=== PATIENT | male | born 1955 | race Caucasian/White ===

== ENCOUNTER → 2022-10-24 14:12 | Outpatient (BNVA) | payer MEDICARE, SELFPAY | PROVIDERS: Visit Provider Family Medicine | DX: M75.00 Adhesive capsulitis of unspecified shoulder (principal); M19.019 Primary osteoarthritis, unspecified shoulder; M25.522 Pain in left elbow | CPT/HCPCS: 73030; 73070 ==

== ENCOUNTER → 2022-12-21 13:43 | Outpatient (BNVA) | payer MEDICARE, SELFPAY | PROVIDERS: PCP Family Medicine; Visit Provider Family Medicine | DX: R97.20 Elevated prostate specific antigen [PSA] (principal); E05.90 Thyrotoxicosis, unspecified without thyrotoxic crisis or storm; I10 Essential (primary) hypertension; F41.9 Anxiety disorder, unspecified; Z12.5 Encounter for screening for malignant neoplasm of prostate; C44.92 Squamous cell carcinoma of skin, unspecified | CPT/HCPCS: 80053; 80061; 84439; 84443; 84481; 85025; G0103 ==

== ENCOUNTER → 2023-01-25 10:03 | Outpatient (BNVA) | payer MEDICARE, SELFPAY | PROVIDERS: PCP Family Medicine; Referring Provider Family Medicine; Visit Provider Dermatology | DX: C44.319 Basal cell carcinoma of skin of other parts of face (principal); L82.1 Other seborrheic keratosis; R22.0 Localized swelling, mass and lump, head; L57.8 Other skin changes due to chronic exposure to nonionizing radiation; L57.0 Actinic keratosis; L81.4 Other melanin hyperpigmentation | CPT/HCPCS: 11102; 11103; 17000; 17003; 99204 ==

== ENCOUNTER → 2023-02-15 07:51 | Outpatient (BNVA) | payer MEDICARE, SELFPAY | PROVIDERS: PCP Family Medicine; Visit Provider Dermatology | DX: C44.319 Basal cell carcinoma of skin of other parts of face (principal) | CPT/HCPCS: 12052; 17311; 99213 ==

== ENCOUNTER 2023-02-22 13:33 | Outpatient (CLI) | payer MEDICARE, SELFPAY ==
--- NOTE | 2023-02-22 13:55 | CT_ITS ---
WS: [id number] CT HEAD WITH AND WITHOUT CONTRAST HISTORY: RIGHT UPPER CUTANEOUS LIP TECHNIQUE: Noncontrast 2.5 mm axial images obtained from the vertex to the skull base. Additional corky ging performed at 2.5 mm axial images status post IV contrast. Bone and soft tissue windows are revie wed. All CT scans at [facility] use at least one of these dose optimization techniques: autom ated exposure control; mA and/or kV adjustment per patient size (includes targeted exams where dose i s matched to clinical indication); or iterative reconstruction. CONTRAST: Omnipaque 350; 100 mL IV. DLP: 2496.83 mGy.cm COMPARISON: None available. No acute intracranial hemorrhage, edema or midline shift. Very mild atrophy and small vessel ischemic disease. No sulcal effacement or large territory infarct. Ventricles are normal size. No enhancing mass or vascular malformations identified. Dural venous sinuses are normally enhancing. Visualized [place] is unremarkable. Paranasal sinuses as visualized: Clear. Mastoid air cells: Clear. Calvarium and scalp: Intact. CT/CT head wo/w con [id number] IMPRESSION: 1. Mild cerebral atrophy and small vessel ischemic disease. 2. No enhancing cerebral masses. 3. No skull calvarial fractures or destructive bone process.
--- NOTE | 2023-02-22 13:56 | CT_ITS ---
WS: [id number] CT NECK WITH CONTRAST HISTORY: RIGHT UPPER CUTANEOUS LIP TECHNIQUE: Contiguous 5 mm axial images are performed through the neck with intravenous contrast. Sag ittal and coronal reformats are also submitted. All CT scans at [facility] use at least one o f these dose optimization techniques: automated exposure control; mA and/or kV adjustment per patient size (includes targeted exams where dose is matched to clinical indication); or iterative reconstruc tion. CONTRAST: CONTRAST: Omnipaque 350; 100 mL IV. DLP: 2496.83 mGy.cm COMPARISON: None available. Expansile soft tissue and osseous mass with slightly elevated Hounsfield units centered within the an terior RIGHT maxilla. Destruction of the bone with expansion. There is thinning of the cortex. The so ft tissue mass extends into the anterior RIGHT ethmoid air cells through a small defect within the jacek ne. Mass measures 3.7 x 2.8 cm and extends over a length of 2.2 cm. There is a additional overlying soft tissue thickening and induration anterior to the expansile bone mass in the RIGHT maxilla. There is additional very mild induration of the soft tissues over the ante rior LEFT cheek which may be from a prior biopsy site.. Several of the alveolar sockets are being deformed and destroyed by the mass. There is marked flatten ing and deformity of the anterior wall RIGHT maxillary sinus but no invasion into the sinus. No cervical chain adenopathy is identified. No tongue base or neck mass. No compromise of the airway. Unfused odontoid process is a normal variant. CT/CT neck w con* [id number] IMPRESSION: 1. Expansile destructive mass centered in the anterior RIGHT maxilla measures 3.7 x 2.8 x 2.2 cm. There is very mild enhancement. This mass invades in the an teriormost RIGHT ethmoid air cell. Recommend biopsy as malignancy needs to be e xcluded. 2. No cervical chain adenopathy.
== END 2023-02-22 13:34 | disposition home or self-care (01) ==
PROVIDERS: PCP Family Medicine; Visit Provider Dermatology
DX: D48.5 Neoplasm of uncertain behavior of skin (principal); L57.8 Other skin changes due to chronic exposure to nonionizing radiation; L57.0 Actinic keratosis; L81.4 Other melanin hyperpigmentation; R22.0 Localized swelling, mass and lump, head; I67.89 Other cerebrovascular disease; G31.89 Other specified degenerative diseases of nervous system
CPT/HCPCS: 70470; 70491; Q9967

== ENCOUNTER → 2023-06-25 09:29 | Outpatient (BNVA) | payer MEDICARE, SELFPAY | PROVIDERS: PCP Family Medicine; Visit Provider Nurse Practitioner Family | DX: Z12.5 Encounter for screening for malignant neoplasm of prostate (principal); R97.20 Elevated prostate specific antigen [PSA]; R31.9 Hematuria, unspecified; M54.32 Sciatica, left side; J22 Unspecified acute lower respiratory infection | CPT/HCPCS: 81003; 87086; G0103 ==

== ENCOUNTER → 2023-06-28 15:19 | Outpatient (BNVA) | payer MEDICARE, SELFPAY | PROVIDERS: PCP Family Medicine; Visit Provider Nurse Practitioner Family | DX: N39.0 Urinary tract infection, site not specified (principal); R97.20 Elevated prostate specific antigen [PSA]; N40.0 Benign prostatic hyperplasia without lower urinary tract symptoms; M25.559 Pain in unspecified hip | CPT/HCPCS: 73502 ==

== ENCOUNTER → 2023-06-29 08:48 | Outpatient (BNVA) | payer MEDICARE, SELFPAY | PROVIDERS: PCP Family Medicine; Visit Provider Nurse Practitioner Family | DX: N39.0 Urinary tract infection, site not specified (principal); R97.20 Elevated prostate specific antigen [PSA]; N40.0 Benign prostatic hyperplasia without lower urinary tract symptoms; M25.559 Pain in unspecified hip | CPT/HCPCS: 81003 ==

== ENCOUNTER 2023-07-17 06:00 | Outpatient (RCR) | payer MEDICARE, SELFPAY | END 2023-07-26 23:59 | disposition home or self-care (01) | LOC: WPT 06:00 | PROVIDERS: Visit Provider Nurse Practitioner Family | DX: M54.32 Sciatica, left side (principal) | CPT/HCPCS: 97110; 97112; 97161; 97530 ==

== ENCOUNTER 2023-07-27 06:00 | Outpatient (RCR) | payer MEDICARE, SELFPAY | END 2023-08-26 23:59 | disposition home or self-care (01) | LOC: WPT 06:00 | PROVIDERS: Visit Provider Nurse Practitioner Family | DX: M25.552 Pain in left hip (principal); M54.32 Sciatica, left side | CPT/HCPCS: 97110; 97112; 97530 ==

== ENCOUNTER 2023-08-27 06:00 | Outpatient (RCR) | payer MEDICARE, SELFPAY | END 2023-09-26 23:59 | disposition home or self-care (01) | LOC: WPT 06:00 | PROVIDERS: PCP Nurse Practitioner Family; Visit Provider Nurse Practitioner Family | DX: M54.32 Sciatica, left side (principal); M25.552 Pain in left hip | CPT/HCPCS: 97110; 97112; 97140; 97530 ==

== ENCOUNTER → 2023-08-30 10:45 | Outpatient (BNVA) | payer MEDICARE, SELFPAY | PROVIDERS: PCP Nurse Practitioner Family; Visit Provider Nurse Practitioner Family | DX: R97.20 Elevated prostate specific antigen [PSA] (principal) | CPT/HCPCS: 84153 ==

== ENCOUNTER → 2023-12-12 10:49 | Outpatient (BNVA) | payer MEDICARE, SELFPAY | PROVIDERS: PCP Nurse Practitioner Family; Visit Provider Nurse Practitioner Family | DX: I10 Essential (primary) hypertension (principal); E05.90 Thyrotoxicosis, unspecified without thyrotoxic crisis or storm; E55.9 Vitamin D deficiency, unspecified; Z13.6 Encounter for screening for cardiovascular disorders; Z79.899 Other long term (current) drug therapy; G47.00 Insomnia, unspecified; F41.9 Anxiety disorder, unspecified | CPT/HCPCS: 80053; 80061; 81003; 82306; 83036; 84439; 84443; 85025 ==

== ENCOUNTER → 2024-08-05 10:49 | Outpatient (BNVA) | payer MEDICARE, SELFPAY | PROVIDERS: PCP Nurse Practitioner Family; Visit Provider Nurse Practitioner Family | DX: N40.0 Benign prostatic hyperplasia without lower urinary tract symptoms (principal) | CPT/HCPCS: 84153 ==

== ENCOUNTER 2024-12-11 11:14 | Emergency (ER) | payer MEDICARE, SELFPAY ==
--- NOTE | 2024-12-11 11:25 | ECG_ITS ---
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 Measurements Intervals [place] Rate: 80 P: 61 MI: 156 QRS: 50 QRSD: 88 T: 60 QT: 357 QTc: 413 Interpretive Statements SINUS RHYTHM INTERPRETATION BASED ON A DEFAULT AGE OF 40 YEARS No previous ECG available for comparison Electronically Signed On 12-12-2024 08:44:52 CDT by Danial Acosta M.D. [id number]
[2024-12-11 11:31] VITALS: BP 135/86; PULSE 84; RESP 15; TEMP 36.6; O2SAT 98; BMI 28.4
--- NOTE | 2024-12-11 12:52 | XR_ITS ---
WS: [id number] Portable AP semiupright chest, 12/11/2024 Clinical Data: chest pain Comparison: None. Findings: No nodules, masses or effusions are seen. The heart is normal. The pulmonary vascularity is not increased. No pneumonia or pneumothorax is seen. The aortic arch and descending thoracic aorta show mild tortuosity. There are monitor leads on the chest wall. XR/XR chest 1V portable [id number] Impression: Atherosclerosis.
--- NOTE | 2024-12-11 12:55 | ED_ITS ---
HPI - Arrhythmia/Palpitations 2 General: Chief Complaint: Arrhythmia/Palpitations Stated Complaint: irregular HR Time Seen by Provider: 12/11/24 12:52 History of Present Illness: 69-year-old male presents emergency room complaints of palpitations and irregular heart rate. Patient has a history of previous thyroidectomy. He currently is undergoing treatment for prostate cancer he was previously seen by radiation and is now receiving chemo. No chest pain no shortness of breath no cough no fever sweats or chills Related Data Home Medications ?Medication ?Instructions ?Recorded ?Confirmed tamsulosin 0.4 mg capsule 0.4 mg PO DAILY 07/10/24 Previous Rx's ?Medication ?Instructions ?Recorded propylthiouracil 50 mg tablet 50 mg PO BID 90 days #18 0 tabs 12/12/23 amlodipine 10 mg tablet 10 mg PO DAILY 90 days #90 t abs 02/25/24 hydroxyzine HCl 25 mg tablet 25 mg PO Q8H PRN nausea a nd 08/05/24 vomiting 30 days #30 tabs Allergies Allergy/AdvReac Type Severity Reaction Status Date / Time naproxen (From Aleve) Allergy difficulty Verified 12/11/24 09:27 breathing Penicillins Allergy difficulty Verified 12/11/24 09:27 breathing Sulfa (Sulfonamide Allergy difficulty Verified 12/11/24 09:27 Antibiotics) breathing Review of Systems 2 Const: Denies: fever(s) or chills Card: Reports: palpitations; Denies: chest pain Resp: Denies: dyspnea GI: Denies: abdominal pain : Denies: flank pain, dysuria, urinary frequency or urinary urgency Musc: Denies: neck pain or back pain Skin/Breast: Denies: rash PFSH ED 2 PFSH: Medical History Arrhythmia Degenerative joint disease of cervical spine Dermatitis SCCA (squamous cell carcinoma) of skin Melanoma of skin Elevated PSA Tension headache Prostate cancer Dr. Christina Murray [facility] Encounter for screening for malignant neoplasm of prostate Insomnia Anxiety Medication management Encounter for screening for cardiovascular disorders Left hip pain BPH (benign prostatic hyperplasia) Routine lab draw Sciatica of left side Hypertension Hyperthyroidism Cholecystectomy planned Surgical History H/O unilateral orchiectomy Left testicle removed - approx 1999 Social History Smoking and tobacco/nicotine status: never used tobacco/nicotine Alcohol intake: never Substance/Drug Use: never Physical Exam 2 Const: GENERAL APPEARANCE: cooperative ORIENTATION/CONSCIOUSNESS: Yes awake, Yes oriented to person, Yes oriented to place and Yes oriented to time HENMT: COMMON NORMALS: normocephalic, atraumatic and hearing grossly normal bilaterally HEAD & SCALP: normocephalic and atraumatic Resp: COMMON NORMALS: normal respiratory effort, No retractions, No use of accessory muscles and clear to auscultation bilaterally AUSCULTATION: clear to auscultation bilaterally Cardio: COMMON NORMALS: regular rate, regular rhythm and No murmurs present (Cardio) RATE: regular rate RHYTHM: regular rhythm GI: COMMON NORMALS: Soft to palpation and No hepatosplenomegaly present A USCULTATION: Yes normoactive bowel sounds PALPATION: Yes Soft to palpation, No Tenderness to palpation present (GI), No Guarding due to palpation present (GI) and Yes No hepatosplenomegaly present Extremity: COMMON NORMALS: normal to inspection, capillary refill normal, no clubbing, cyanosis or edema, no calf tenderness and no pedal edema Neuro: SENSORIUM/ORIENTATION: Yes oriented to person, Yes oriented to place and Yes oriented to time Skin: COMMON NORMALS: no rashes or lesions noted GENERAL SKIN EXAM: no rashes or lesions noted Course 2 Vital Signs: Vital signs: Vital Signs Temperature 97.8 F 12/11/24 11:31 Pulse Rate 92 12/11/24 16:43 Respiratory Rate 18 12/11/24 16:43 Blood Pressure 153/88 12/11/24 16:43 Pulse Oximetry 95 12/11/24 16:43 Oxygen Delivery Me thod Room Air 12/11/24 11:31 MDM - Arrhythmia/Palpitations Medical Decision Making Observed several runs of PVCs and episodes of bigeminy which patient was asymptomatic of. I talked to him for period of time and at the bedside as we discussed the findings and what to do next he had some runs of PVCs and some persistent bigeminy for which he is completely asymptomatic of at this time. He is not on anything that would be negative ametropic. Will discharge patient home set him up for an outpatient 72-hour Holter monitor and follow-up with his primary care doctor Medical Records I reviewed the patient's medical records. Lab Data I reviewed the patient's lab results. 12/11/24 13:09 12/11/24 13:09 Radiology Impressions Chest X-Ray 12/11/24 12:52 Impression: Atherosclerosis. Laboratory Results WBC 9.02 10^3/uL (3.29-11.43) 12/11/24 13:09 RBC 4.62 10^6/uL (3.85-5.65) 12/11/24 13:09 Hgb 14.40 g/dL (11.27-16.99) 12/11/24 13:09 Hct 41.4 % (37-53) 12/11/24 13:09 MCV 89.6 fl (82-101) 12/11/24 13:09 MCH 31.2 pg (27-33) 12/11/24 13:09 MCHC 34.8 g/dL (30-55) 12/11/24 13:09 RDW 12.1 % (12.1-15.1) 12/11/24 13:09 Plt Count 252 10^3/cmm (157-399) 12/11/24 13:09 MPV 9.1 fL (7.4-10.4) 12/11/24 13:09 Neut % (Auto) 84.5 % 12/11/24 13:09 Lymph % (Auto) 8.6 % 12/11/24 13:09 [place] % (Auto) 5.8 % 12/11/24 13:09 Eos % (Auto) 0.3 % 12/11/24 13:09 Baso % (Auto) 0.6 % 12/11/24 13:09 Neut # (Auto) 7.62 10^3/uL (1.8-7.7) 12/11/24 13:09 Lymph # (Auto) 0.8 10^3/uL (0.8-4.8) 12/11/24 13:09 [place] # (Auto) 0.5 10^3/uL (0.2-0.9) 12/11/24 13:09 Eos # (Auto) 0.0 10^3/uL (0.0-0.8) 12/11/24 13:09 Baso # (Auto) 0.1 10^3/uL (0.0-0.1) 12/11/24 13:09 Nucleated RBC % (auto) 0 % 12/11/24 13:09 Nucleated RBCs # 0.0 /100WBC 12/11/24 13:09 Sodium 142 mmol/L (136-145) 12/11/24 13:09 Potassium 4.6 mmol/L (3.5-5.1) 12/11/24 13:09 Chloride 103 mmol/L (98-107) 12/11/24 13:09 Carbon Dioxide 24 mmol/L (22-29) 12/11/24 13:09 Anion Gap 19.6 (5-19) H 12/11/24 13:09 BUN 14 mg/dL (8-23) 12/11/24 13:09 Creatinine 0.8 mg/dL (0.7-1.2) 12/11/24 13:09 GFR Calculation 96.4 mL/min (90-130) 12/11/24 13:09 Glucose 124 mg/dL (65-115) H 12/11/24 13:09 Calculated Osmolality 296 mOsm/kg (285-295) H 12/11/24 13:09 Calcium 9.6 mg/dL (8.5-10.5) 12/11/24 13:09 Total Bilirubin 0.5 mg/dL (0.15-1.2) 12/11/24 13:09 AST 24 U/L (0-40) 12/11/24 13:09 ALT 24 U/L (0-41) 12/11/24 13:09 Alkaline Phosphatase 162 U/L (40-130) H 12/11/24 13:09 Troponin T Baseline 8 ng/L (0-15) 12/11/24 13:09 Troponin T 120 Minute 9.04 ng/L (0-15) 12/11/24 15:27 Delta Troponin T 1.04 ABS# (0-10) 12/11/24 15:27 Total Protein 7.0 g/dL (6.6-8.7) 12/11/24 13:09 Albumin 4.6 g/dL (3.5-5.2) 12/11/24 13:09 Globulin 2.4 g/dL (1.3-4.6) 12/11/24 13:09 TSH 1.45 uIU/mL (0.27-4.20) 12/11/24 13:09 All radiology interpretation(s) finalized by discharge Discharge Plan Discharge Patient Disposition: Home Clinical Impression: Frequent PVCs Condition: Stable Prescriptions: No Action tamsulosin 0.4 mg capsule 0.4 mg PO DAILY hydroxyzine HCl 25 mg tablet 25 mg PO Q8H PRN (Reason: nausea and vomiting) 30 Days Qty: 30 2RF propylthiouracil 50 mg tablet 50 mg PO BID 90 Days Qty: 180 3RF amlodipine 10 mg tablet 10 mg PO DAILY 90 Days Qty: 90 3RF Discharge Orders: Discharge ED (Routine); Ordered 12/11/24 Ordered By: Ike Jane Referrals: GILDARDO Hilliard, ENA [Primary Care Provider] - Discharge Diet: Usual diet Discharge Activity: Resume usual activity Patient Instructions: Premature Ventricular Contractions (ED), Opioid Safety, Pain Management Activity Restrictions/Additional Instructions: Thank you for choosing [facility] for your healthcare needs today. It is very important that you follow up as instructed or that you return to the Emergency Department should you have concerns or if your condition changes or worsens in any way. You were seen in the emergency room with complaints of palpitations. Your heart enzymes and EKGs did not show any significant abnormality. Your labs did not show any acute abnormalities. Will discharge you home recommend that you follow-up with your primary care doctor after the Holter monitor. Case management make arrangements for 72-hour Holter monitor Print Language: Khmer Coding Level of Care Code ED Clerical Administrative Assistant for Daniela Boland
[2024-12-11 13:15] LABS: Basophils # 0.1 10^3/uL (0.0-0.1); Basophils % 0.6 %; Eosinophils % 0.3 %; Hematocrit 41.4 % (37-53); Lymphocytes # 0.8 10^3/uL (0.8-4.8); Lymphocytes % 8.6 %; Mean Corpuscular HGB Conc 34.8 g/dL (30-55); Mean Corpuscular Hemoglobin 31.2 pg (27-33); Mean Corpuscular Volume 89.6 fl (82-101); Mean Platelet Volume 9.1 fL (7.4-10.4); Monocytes # 0.5 10^3/uL (0.2-0.9); Monocytes % 5.8 %; Neutrophils # 7.62 10^3/uL (1.8-7.7); Neutrophils % 84.5 %; Nucleated Red Blood Cells % 0 %; Platelet Count 252 10^3/cmm (157-399); Red Blood Count 4.62 10^6/uL (3.85-5.65); Red Cell Distribution Width 12.1 % (12.1-15.1); White Blood Count 9.02 10^3/uL (3.29-11.43)
[2024-12-11 13:33] LABS: Troponin(5th) Baseline 8 ng/L (0-15)
[2024-12-11 13:36] LABS: Alanine Aminotransferase 24 U/L (0-41); Albumin Level 4.6 g/dL (3.5-5.2); Alkaline Phosphatase 162 U/L (40-130); Anion Gap 19.6 (5-19); Aspartate Amino Transferase 24 U/L (0-40); Blood Urea Nitrogen 14 mg/dL (8-23); Calcium 9.6 mg/dL (8.5-10.5); Carbon Dioxide 24 mmol/L (22-29); Chloride 103 mmol/L (98-107); Creatinine Clr Calc Pharmacy 101.0396; Globulin 2.4 g/dL (1.3-4.6); Glomerular Filtration Rate 96.4 mL/min (90-130); Glucose 124 mg/dL (65-115); Osmolality Calculated 296 mOsm/kg (285-295); Potassium 4.6 mmol/L (3.5-5.1); Sodium 142 mmol/L (136-145); Total Bilirubin 0.5 mg/dL (0.15-1.2)
--- NOTE | 2024-12-11 13:39 | ECG_ITS ---
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 Measurements Intervals [place] Rate: 81 P: 46 [place]: 160 QRS: 27 QRSD: 90 T: 50 QT: 377 QTc: 438 Interpretive Statements SINUS RHYTHM Compared to ECG 12/11/2024 11:25:58 No significant changes Electronically Signed On 12-12-2024 09:01:27 CDT by Danial Acosta M.D. [id number] [id number]
[2024-12-11 13:42] LABS: Thyroid Stimulating Hormone 1.45 uIU/mL (0.27-4.20)
[2024-12-11 15:54] LABS: Troponin 5 2HR 9.04 ng/L (0-15); Troponin 5 2HR Delta 1.04 ABS# (0-10)
[2024-12-11 16:43] VITALS: BP 153/88; PULSE 92; RESP 18; O2SAT 95
--- NOTE | 2024-12-12 07:04 | DCPLANNER ---
messaged heart care for er f/u
== END 2024-12-11 16:45 | disposition home or self-care (01) ==
PROVIDERS: Emergency Provider Family Medicine; PCP Nurse Practitioner Family
DX: I49.3 Ventricular premature depolarization (principal); Z85.46 Personal history of malignant neoplasm of prostate; I10 Essential (primary) hypertension
CPT/HCPCS: 36415; 71045; 80053; 84443; 84484; 85025; 93005; 99285

== ENCOUNTER → 2024-12-29 09:10 | Outpatient (BNVA) | payer MEDICARE, SELFPAY | PROVIDERS: PCP Nurse Practitioner Family; Referring Provider Family Medicine; Visit Provider Internal Medicine | DX: R00.2 Palpitations (principal); I49.8 Other specified cardiac arrhythmias; I49.3 Ventricular premature depolarization; I49.1 Atrial premature depolarization; I47.10 Supraventricular tachycardia, unspecified | CPT/HCPCS: 93242 ==

== ENCOUNTER → 2025-01-13 11:58 | Outpatient (BNVA) | payer MEDICARE, SELFPAY | PROVIDERS: PCP Nurse Practitioner Family; Visit Provider Internal Medicine Cardiovascular Disease | DX: I49.9 Cardiac arrhythmia, unspecified (principal); I49.3 Ventricular premature depolarization; C61 Malignant neoplasm of prostate; R53.83 Other fatigue; R06.02 Shortness of breath; R07.9 Chest pain, unspecified | CPT/HCPCS: 99204 ==

== ENCOUNTER 2025-02-24 08:44 | Outpatient (CLI) | payer MEDICARE, SELFPAY ==
--- NOTE | 2025-02-24 | ECG_ITS ---
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 Interpretive Statements EXERCISE MIBI EXERCISE DATA: The patient was exercised by Antonio protocol. Baseline heart rate was 87 beats per minute. Baseline blood pressure was 118/96 millimeters of mercury. Maximal predicted heart rate was 153 beats per minute. Maximum heart rate achieved was 171 which was 111% of the maximum predicted heart rate. Maximum blood pressure was 168/57 millimeters of mercury. Total exercise time was 2 minutes and 17 seconds. Maximum METs achieved was 4.6. The reason for ending the test was maximal effort achieved. The patient complained of shortness of breath during the stress test, which then resolved at the end of the test. ELECTROCARDIOGRAM: BASELINE: Showed sinus rhythm, normal axis, no significant ST-T changes at the baseline noted. [] EXERCISE: At the peak exercise level, [] No significant ST-T changes suggestive of ischemia noted. [] RECOVERY: During the recovery period, heart rate dropped appropriately. No significant ST-T changes in the recovery suggestive of ischemia noted. PVCs seen [] CONCLUSION: 1. Exercise capacity is poor 2. Heart rate response was appropriate 3. Blood pressure response was appropriate 4. Symptoms not suggestive of ischemia. 5. Electrocardiogram portion of the stress test was not suggestive of ischemia. 6. Nuclear scan will be documented separately. Electronically Signed On 03-07-2025 12:47:00 CDT by Miguel Angel Villanueva M.D. [email or web address] [id number]
[2025-02-24 09:04] VITALS: BMI 28.7
--- NOTE | 2025-02-24 09:05 | NMCV_ITS ---
NM jamie perf SPECT r/s* [id number] Last Blackburn Age: 69 Gender: M : 1955 Exam Date: 02/24/2025 10:10 Ordering Phys: Priti Peterson MD ([email or web address]) Technologist: HORACIO Sheppard Exam Location: [facility] Indications: cp STRESS TEST Please see separate stress test report in [facility] for full findings IMAGE PROTOCOL Rest/Stress 1 Exercise Day Radiopharmaceutical Dose (mCi) Administration Site Administered by Rest: Tc-99m 10.6 IV HORACIO Sheppard Sestamibi Stress:Tc-99m 33 IV HORACIO Sheppard Sestamibi Rest: 24-Feb-2025 60 Discovery 630 Stress: 24-Feb-2025 30 Discovery 630 Radiopharmaceutical was injected at 94 % maximum heart rate. Images obtained in supine and prone position. SPECT RESULTS Technical Quality: Good Raw Data Analysis: Normal Image Corrections: No attenuation or motion correction applied Summed Stress Score: 0 Summed Rest Score: 1 Summed Difference Score: 0 PERFUSION FINDINGS SPECT images demonstrate homogeneous tracer distribution throughout the myocardium. FUNCTIONAL RESULTS (calculated via Gated SPECT) Stress Image LV EF (%): 57 Stress EDV (mL):58 TID: 0.65 Stress ESV (mL):25 FUNCTIONAL FINDINGS: There is normal left ventricular systolic function. IMPRESSIONS 1. Normal myocardial perfusion imaging with no evidence of ischemia. 2. LV systolic function is normal. Miguel Angel Villanueva MD (Electronically Signed) Final Date: 25 February 2025 12:08 S
[2025-02-24 10:50] VITALS: BP 114/78; PULSE 102
--- NOTE | 2025-02-24 12:45 | USCV_ITS ---
Last Blackburn Age: 69 Gender: M : 1955 Exam Date: 02/24/2025 09:27 Ordering Phys: Priti Peterson MD ([email or web address]) Technologist: [place] [facility] [place]ication: cp sob murmur BP: 130 / 80 HR: 67 Rhythm: Sinus Technical Quality: Adequate MEASUREMENTS (Male / Female) Normal Values 2D ECHO LV Diastolic Diameter PLAX 4.3 cm 4.2 - 5.9 / 3.9 - 5.3 cm IVS Diastolic Thickness 1.0 cm 0.6 - 1.0 / 0.6 - 0.9 cm IVS Systolic Thickness 1.8 cm LVPW Diastolic Thickness 1.4 cm 0.6 - 1.0 / 0.6 - 0.9 cm LVPW Systolic Thickness 1.8 cm LVOT Diameter 2.2 cm LV Ejection Fraction 2D Teich 67.2 % LV Ejection Fraction MOD 4C 55.6 % LV Ejection Fraction MOD 2C 77.0 % LV Ejection Fraction 2C AL 78.6 % LA Diameter 3.9 cm RA Systolic Volume 4C AL 37.2 ml RA Systolic Volume 4C MOD 34.4 ml Aorta at Sinotubular Diameter 3.8 cm IVC Diameter 1.4 cm M-MODE LA Ao Ratio MM 1.5 AV Cusp Separation MM 3.0 cm DOPPLER AV Peak Velocity 133.0 cm/s LVOT Peak Velocity 97.0 cm/s AV Area Cont Eq vti 3.7 cm squared AV Area Cont Eq pk 2.7 cm squared MV Peak Velocity 109.0 cm/s MV Area PHT 3.4 cm squared Mitral E to A Ratio 0.9 TV Peak Velocity 248.0 cm/s TR Peak Velocity 326.0 cm/s TR Peak Gradient 42.5 mmHg TV Peak E Velocity 101.0 cm/s PV Peak Velocity 143.0 cm/s FINDINGS Left Ventricle Normal left ventricular size, systolic function and wall thickness, with no regional wall motion abnormalities. Left ventricular ejection fraction is estimated at 60 %. Grade I/IV diastolic dysfunction (abnormal relaxation filling pattern), normal to mildly elevated filling pressures. Right Ventricle The right ventricle is normal in size and function. Right Atrium The right atrium is normal in size. Left Atrium The left atrium is normal in size. Mitral Valve Mildly thickened mitral valve. No mitral valve stenosis. Mild mitral valve regurgitation. Aortic Valve Structurally normal aortic valve without significant sclerosis or stenosis. There is no aortic regurgitation. Tricuspid Valve Bmqs-gb-[id number] tricuspid valve regurgitation. Pulmonic Valve Structurally normal pulmonic valve without significant stenosis. There is no pulmonic regurgitation. Pericardium Normal pericardium without effusion. Aorta Normal ascending aorta dimension. IVC The inferior vena cava appears normal. CONCLUSIONS Normal left ventricular size, systolic function and wall thickness, with no regional wall motion abnormalities. Left ventricular ejection fraction is estimated at 60 %. Grade I/IV diastolic dysfunction (abnormal relaxation filling pattern), normal to mildly elevated filling pressures. Snog-ev-zffvzvke tricuspid valve regurgitation. Mildly thickened mitral valve. No mitral valve stenosis. Mild mitral valve regurgitation. There is no pericardial effusion. Right atrial pressure is around 5 mm of mercury. Priti Peterson MD (Electronically Signed) Final Date: 11 March 2025 20:38 S
== END 2025-02-24 08:45 | disposition home or self-care (01) ==
LOC: CDL 08:45
PROVIDERS: PCP Nurse Practitioner Family; Visit Provider Internal Medicine Cardiovascular Disease
DX: R07.9 Chest pain, unspecified (principal); R06.02 Shortness of breath; R93.1 Abnormal findings on diagnostic imaging of heart and coronary circulation; I34.0 Nonrheumatic mitral (valve) insufficiency; I07.1 Rheumatic tricuspid insufficiency
CPT/HCPCS: 36415; 78452; 93017; 93306; A9500

== ENCOUNTER 2025-02-25 10:49 | Observation (INO) | payer MEDICARE, SELFPAY ==
[2025-02-25] VITALS (10 sets, daily range): BP systolic 114–175; BP diastolic 61–101; PULSE 52–113; RESP 15–22; TEMP 36.4–36.7; O2SAT 94–97; BMI 30.1; BMI 29.2
--- NOTE | 2025-02-25 10:50 | XR_ITS ---
WS: [id number] XR chest 1V portable [id number] REASON FOR EXAM: cp FINDINGS: The chest is unchanged compared to 12/11/2024. Mild tortuosity and ectasia of the descending thoracic aorta. The heart size is within normal limits. Calcified granulomatous disease in both hemithoraces. Linear fibrotic scar in the left lung base. No significant pulmonary parenchymal or pleural abnormality. Mild degenerative spondylosis in the mid and lower thoracic spine. XR/XR chest 1V portable [id number] IMPRESSION: Stable chest with no acute abnormality.
--- NOTE | 2025-02-25 10:50 | ECG_ITS ---
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 Measurements Intervals [place] Rate: 83 P: 52 AR: 144 QRS: 23 QRSD: 82 T: 44 QT: 366 QTc: 432 Interpretive Statements SINUS RHYTHM WITH FREQUENT VENTRICULAR PREMATURE COMPLEXES IN A BIGEMINAL PATTERN ST DEVIATION AND MODERATE T-WAVE ABNORMALITY, CONSIDER ANTERIOR ISCHEMIA [-0.1+ mV T-WAVE IN V3/V4] Compared to ECG 12/11/2024 13:39:06 Ventricular premature complex(es) now present T-wave abnormality now present Possible ischemia now present Electronically Signed On 02-26-2025 08:56:22 CDT by Miguel Angel Villanueva M.D. [email or web address]
--- OUTSIDE RECORDS SUMMARY | 2025-02-25 10:56 | XMS_ITS | Encounter Summary ---
Author Organization [facility] Address [address] [place] [address] Care Team Providers Care Core Filer Name Role Phone Ismael Powell MD Primary Care Provider Encounter Details Date Type Department Care Team (Late st Contact Info) Description 08/16/2009 Orders Only [facility] [address] [place] [address] System, Provider Not In, [address] [place] [address] Social History Tobacco Use Types Packs/Day Years Used Date Smoking Tobacco: Never Assessed Sex and Gender Information Value Date Recorded Sex Assigned at Not on file Legal Sex Male 7:15 PM CDT Gender Identity Not on file Sexual Orientation Not on file documented as of this encounter Plan of Treatment Not on file documented as of this encounter Procedures Procedure Name Priority Date/Time Associated Diagnosis Comments OUTSIDE IMAGES 08/16/2009 10:28 AM 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 LOSS PHYSICIAN documented in this encounter Results * Outside Images (08/16/2009 10:28 AM WEIGHT LOSS PHYSICIAN) Anatomical Region Laterality Modality N/A Radiographic Lili ging 08/16/2009 10:2 8 AM WEIGHT LOSS PHYSICIAN Narrative 08/16/2009 10:28 AM WEIGHT LOSS PHYSICIAN Historic images from [facility] exist and can be viewed by using the hyperlink to access [facility] p[facility]: Lumbosacral Spine; two or three views Procedure Note System, Provider Not In - 08/17/2018 Historic images from [facility] exist and can be viewed by using thehyperlink to access [facility] p[facility]: Lumbosacral Spine; two or threeviews us Provider Not In System MD [facility] Final Result documented in this encounter Visit Diagnoses Not on filedocumented in this encounter Care Teams Core Filer Relationship Specialty Start Date End Date Ismael Powell MD PCP - General Internal Medicine 11/09/16 documented as of this encounter
--- OUTSIDE RECORDS SUMMARY | 2025-02-25 10:56 | XMS_ITS | Encounter Summary ---
Author Organization [facility] Address [address] [place] [address] Care Team Providers Care Schedule Maker Name Role Phone Ismael Powell MD Primary Care Provider Encounter Details Date Type Department Care Team (Late st Contact Info) Description 07/02/2018 Orders Only [facility] Radiology [address] [place] [address] System, Provider Not In, [address] [place] [address] Social History Tobacco Use Types Packs/Day Years Used Date Smoking Tobacco: Never Smokeless Tobacco: Never Alcohol Use Standard Drinks/Week Comments No 0 (1 standard drink = 0.6 oz pur e alcohol) Sex and Gender Information Value Date Recorded Sex Assigned at Not on file Legal Sex Male 7:15 PM CDT Gender Identity Not on file Sexual Orientation Not on file documented as of this encounter Plan of Treatment Not on file documented as of this encounter Procedures Procedure Name Priority Date/Time Associated Diagnosis Comments OUTSIDE IMAGES 07/02/2018 11:58 AM INSECTICIDE SUPERVISOR documented in this encounter Results * Outside Images (07/02/2018 11:58 AM INSECTICIDE SUPERVISOR) Anatomical Region Laterality Modality N/A Radiographic Lili ging 07/02/2018 11:5 8 AM INSECTICIDE SUPERVISOR Narrative 07/02/2018 11:58 AM INSECTICIDE SUPERVISOR Historic images from [facility] exist and can be viewed by using the hyperlink to access [employer] pacs: Hepatobiliary Procedure Note System, Provider Not In, - 09/28/2020 Historic images from [facility] exist and can be viewed byusing the hyperlink to access Carestream pacs: Hepatobiliary Provider Not In System MD [facility] IM[facility] OR DERABLES Final Result documented in this encounter Visit Diagnoses Not on filedocumented in this encounter Care Teams Schedule Maker Relationship Specialty Start Date End Date Ismael Powell MD PCP - General Internal Medicine 11/09/16 documented as of this encounter
--- OUTSIDE RECORDS SUMMARY | 2025-02-25 10:56 | XMS_ITS | Encounter Summary ---
Author Organization [facility] Address [address] [place] [address] Care Team Providers Care Coremaker Pipe Name Role Phone Ismael Powell MD Primary Care Provider Encounter Details Date Type Department Care Team (Late st Contact Info) Description 03/31/2015 Orders Only [facility] Radiology [address] [place] [address] System, Provider Not In, [address] [place] [address] Social History Tobacco Use Types Packs/Day Years [...] Priority Date/Time Associated Diagnosis Comments OUTSIDE IMAGES 03/31/2015 12:51 PM CDT documented in this encounter Results * Outside Images (03/31/2015 12:51 PM CDT) Anatomical Region Laterality Modality N/A Radiographic Lili ging 03/31/2015 12:5 1 PM CDT Narrative 03/31/2015 12:51 PM CDT Historic images from [facility] exist and can be viewed by using the hyperlink to access [employer] pacs: US TESTICLE Procedure Note System, Provider Not In - 09/23/2020 Historic images from [facility] exist and can be viewed byusing the hyperlink to access Carestream pacs: US TESTICLE us Provider Not In System MD IMG GENERAL IMAGING OR DERABLES Final Result documented in this encounter Visit Diagnoses Not on filedocumented in this encounter Care Teams Coremaker Pipe Relationship Specialty Start Date End Date Ismael Powell MD PCP - General Internal Medicine 11/09/16 documented as of this encounter
--- OUTSIDE RECORDS SUMMARY | 2025-02-25 10:56 | XMS_ITS | Encounter Summary ---
Author Organization [employer] Address [address] [place]: Epic Prelude [place] [address] Care Team Providers Care Shape Brick Molder Name Role Phone Unavailable Primary Care Provider Unavailabl e Encounter Details Date Type Department Care Team (Late st Contact Info) Description 06/25/2000 Outpatient Historical Non-Staff, Physician NO ADDRESS ON FILE Social History Tobacco Use Types Packs/Day Years Used Date Smoking Tobacco: Never Assessed Sex and Gender Information Value Date Recorded Sex Assigned at Not on file Legal Sex Male 3:12 AM AUDIO VISUAL COORDINATOR Gender Identity Not on file Sexual Orientation Not on file documented as of this encounter Plan of Treatment Not on file documented as of this encounter Visit Diagnoses Not on filedocumented in this encounter
--- OUTSIDE RECORDS SUMMARY | 2025-02-25 10:56 | XMS_ITS | Encounter Summary ---
Author Organization [facility] Address [address] [place] [address] Care Team Providers Care Physics Instructor Name Role Phone Ismael Powell MD Primary Care Provider Encounter Details Date Type Department Care Team (Late st Contact Info) Description 08/07/2012 Orders Only [facility] Radiology [address] [place] [address] System, Provider Not In, [address] [place] [address] Social History Tobacco Use Types Packs/Day Years [...] Priority Date/Time Associated Diagnosis Comments OUTSIDE IMAGES 08/07/2012 10:37 AM DOUBLE END TRIMMER documented in this encounter Results * Outside Images (08/07/2012 10:37 AM DOUBLE END TRIMMER) Anatomical Region Laterality Modality N/A Radiographic Lili ging 08/07/2012 10:3 7 AM DOUBLE END TRIMMER Narrative 08/07/2012 10:37 AM DOUBLE END TRIMMER Historic images from [facility] exist and can be viewed by using the hyperlink to access [employer] pacs: CT AP WITH CONTRAST Procedure Note System, Provider Not In - 09/18/2020 Historic images from [facility] exist and can be viewed byusing the hyperlink to access Carestream pacs: CT AP WITH CONTRAST us Provider Not In System MD IMG GENERAL IMAGING OR DERABLES Final Result documented in this encounter Visit Diagnoses Not on filedocumented in this encounter Care Teams Physics Instructor Relationship Specialty Start Date End Date Ismael Powell MD PCP - General Internal Medicine 11/09/16 documented as of this encounter
--- OUTSIDE RECORDS SUMMARY | 2025-02-25 10:56 | XMS_ITS | Encounter Summary ---
Author Organization [facility] Address [address] [place] [address] Care Team Providers Care Rn Urology Name Role Phone Ismael Powell MD Primary Care Provider Encounter Details Date Type Department Care Team (Late st Contact Info) Description 04/15/2010 Orders Only [facility] Radiology [address] [place] [address] System, Provider Not In, [address] [place] [address] Social History Tobacco Use Types Packs/Day Years [...] Priority Date/Time Associated Diagnosis Comments OUTSIDE IMAGES 04/15/2010 8:22 AM CDT documented in this encounter Results * Outside Images (04/15/2010 8:22 AM CDT) Anatomical Region Laterality Modality N/A Radiographic Lili ging 04/15/2010 8:22 AM CDT Narrative 04/15/2010 8:22 AM CDT Historic images from [facility] exist and can be viewed by using the hyperlink to access [employer] pacs: US ABDOMEN Procedure Note System, Provider Not In - 09/21/2020 Historic images from [facility] exist and can be viewed byusing the hyperlink to access Carestream pacs: US ABDOMEN us Provider Not In System MD IMG GENERAL IMAGING OR DERABLES Final Result documented in this encounter Visit Diagnoses Not on filedocumented in this encounter Care Teams Rn Urology Relationship Specialty Start Date End Date Ismael Powell MD PCP - General Internal Medicine 11/09/16 documented as of this encounter
--- OUTSIDE RECORDS SUMMARY | 2025-02-25 10:56 | XMS_ITS | Encounter Summary ---
Author Organization [facility] Address [address] [place] [address] Care Team Providers Care Pageant Director Name Role Phone Ismael Powell MD Primary Care Provider Encounter Details Date Type Department Care Team (Late st Contact Info) Description 07/08/2012 Orders Only [facility] Radiology [address] [place] [address] System, Provider Not In, [address] [place] [address] Social History Tobacco Use Types Packs/Day Years [...] Priority Date/Time Associated Diagnosis Comments OUTSIDE IMAGES 07/08/2012 2:40 PM GAS METER CHECKER documented in this encounter Results * Outside Images (07/08/2012 2:40 PM GAS METER CHECKER) Anatomical Region Laterality Modality N/A Radiographic Lili ging 07/08/2012 2:40 PM GAS METER CHECKER Narrative 07/08/2012 2:40 PM GAS METER CHECKER Historic images from [facility] exist and can be viewed by using the hyperlink to access [employer] pacs: US TESTICLE Procedure Note System, Provider Not In - 09/18/2020 Historic images from [facility] exist and can be viewed byusing the hyperlink to access C[employer]ream pacs: US TESTICLE us Provider Not In System MD [facility] OR DERABLES Final Result documented in this encounter Visit Diagnoses Not on filedocumented in this encounter Care Teams Pageant Director Relationship Specialty Start Date End Date Ismael Powell MD PCP - General Internal Medicine 11/09/16 documented as of this encounter
--- OUTSIDE RECORDS SUMMARY | 2025-02-25 10:56 | XMS_ITS | Clinical Summary ---
Author Organization [facility] Address [address] [place] [address] Care Team Providers Care Power Plant Mechanic Name Role Phone Unavailable Primary Care Provider Unavailabl e Social History Tobacco Use Types Packs/Day Years Used Date Smoking Tobacco: Never Assessed Sex and Gender Information Value Date Recorded Sex Assigned at Not on file Legal Sex Male 3:12 AM TELLERS SUPERVISOR Gender Identity Not on file Sexual Orientation Not on file Plan of Treatment Health Maintenance Due Date Last Done Comments DTAP/TDAP/TD VACCINES (1 - Tdap) 1976 COLORECTAL SCREENING 2002 Colorectal Cancer Screening 2002 FIT-DNA Q 3 years 2002 FIT/FOBT Q 1 year 2002 Flex Sig/CT Colonography Q 5 years 2002 PNEUMOCOCCAL VACCINE 50+ YEARS (1 of 1 - PCV) 07/11/20 07 ZOSTER VACCINE (1 of 2) 2007 INFLUENZA VACCINE (#1) 2025 RSV VACCINE (60+ or ) (1 - 1-dose 75+ series) 2032
--- OUTSIDE RECORDS SUMMARY | 2025-02-25 10:56 | XMS_ITS | Encounter Summary ---
Author Organization [facility] Address [address] [place] [address] Care Team Providers Care Endless Belt Finisher Name Role Phone Ismael Powell MD Primary Care Provider Encounter Details Date Type Department Care Team (Late st Contact Info) Description 03/16/2016 Orders Only [facility] Radiology [address] [place] [address] System, Provider Not In, [address] [place] [address] Social History Tobacco Use Types Packs/Day Years [...] Priority Date/Time Associated Diagnosis Comments OUTSIDE IMAGES 03/16/2016 10:07 AM CDT documented in this encounter Results * Outside Images (03/16/2016 10:07 AM CDT) Anatomical Region Laterality Modality N/A Radiographic Lili ging 03/16/2016 10:0 7 AM CDT Narrative 03/16/2016 10:07 AM CDT Historic images from [facility] exist and can be viewed by using the hyperlink to access [employer]Cloud pacs: Abd Series Flat & upright Procedure Note System, Provider Not In, - 09/11/2018 Historic images from [facility] exist and can be viewed by using thehyperlink to access [employer]Cloud pacs: Abd Series Flat & upright us Provider Not In System MD [facility] OR DERABLES Final Result documented in this encounter Visit Diagnoses Not on filedocumented in this encounter Care Teams Endless Belt Finisher Relationship Specialty Start Date End Date Ismael Powell MD PCP - General Internal Medicine 11/09/16 documented as of this encounter
--- OUTSIDE RECORDS SUMMARY | 2025-02-25 10:56 | XMS_ITS | Encounter Summary ---
Author Organization [facility] Address [address] [place] [address] Care Team Providers Care Pan Washer Hand Name Role Phone Ismael Powell MD Primary Care Provider Encounter Details Date Type Department Care Team (Late st Contact Info) Description 08/01/2018 Orders Only [facility] [place] [address] [facility] [address] [place] [address] Short, Edilia E, CARPENTER AND JOINER Calculus of gallbladder with acute cholecystitis without obstruction (Primary Dx) Social History Tobacco Use Types Packs/Day Years [...] on file documented as of this encounter Results * Comprehensive metabolic panel Once (08/01/2018 10:26 AM [facility]) Sodium 138 136 - 145 meq/L 08/01/2018 11:15 AM [facility] Potassium 4.0 3.5 - 5.1 meq/L 08/01/2018 11:15 AM [facility] Chloride 100 98 - 107 meq/L 08/01/2018 11:15 AM [facility] CO2 30.8 21.0 - 32.0 meq/L 08/01/2018 11:15 AM [facility] BUN 14.0 7.0 - 18.0 mg/dL 08/01/2018 11:15 AM [facility] Creatinine 1.01 0.80 - 1.30 mg/dL 08/01/2018 11:15 AM [facility] Glucose 106 74 - 106 mg/dL 08/01/2018 11:15 AM [facility] Calcium 9.2 8.5 - 10.1 mg/dL 08/01/2018 11:15 AM [facility] Bilirubin Total 0.6 0.2 - 1.0 mg/dL 08/01/2018 11:15 AM [facility] Alkaline Phosphatase 97 46 - 116 U/L 08/01/2018 11:15 AM [facility] ALT (SGPT) 36 12 - 78 U/L 08/01/2018 11:15 AM [facility] AST (SGOT) 22 15 - 37 U/L 08/01/2018 11:15 AM [facility] Total Protein 7.7 6.4 - 8.2 g/dL 08/01/2018 11:15 AM [facility] Albumin 4.4 3.4 - 5.0 g/dL 08/01/2018 11:15 AM [facility] Globulin Calc 3.3 1.5 - 3.8 g/dL 08/01/2018 11:15 AM [facility] Alb/Glob Ratio Calc 1.3 1.1 - 2.2 g/dL 08/01/2018 11:15 AM [facility] BUN/Creatinine Ratio 14 mg/dL 08/01/2018 11:15 AM [facility] Glomerular filtration rate if Non- >60 mL/min/1.7 3m2 08/01/2018 11:15 AM [facility] Glomerular filtration rate if >60 mL/min/1.7 3m2 08/01/2018 11:15 AM [facility] Comment: Chronic Kidney Disease: Less than 60 ml/min/1.73 square meters(m2) End Stage Renal Disease: Less than 15 ml/min/1.73 square meters(m2) Blood specimen (specimen) Venous blood / Unknown 08/01/2018 10:26 AM [facility] 08/01/2018 10:29 AM [facility] us Adam Walls DO LAB BLOOD ORDERABLES Final Res ult [facility] [address], [address] [place] [address], [place] [phone] * (ABNORMAL) CBC with Differential Once (08/01/2018 10:26 AM [facility]) WBC 6.43 4.23 - 9.07 10*3/uL 08/01/2018 10:33 AM [facility] RBC 4.85 4.63 - 6.08 10*6/uL 08/01/2018 10:33 AM [facility] Hemoglobin 15.7 13.7 - 17.5 g/dL 08/01/2018 10:33 AM [facility] Hematocrit 43.9 40.1 - 51.0 % 08/01/2018 10:33 AM [facility] MCV 90.5 79.0 - 92.2 fL 08/01/2018 10:33 AM [facility] MCH 32.4(H) 25.7 - 32.2 pg 08/01/2018 10:33 AM [facility] MCHC 35.8 32.3 - 36.5 g/dL 08/01/2018 10:33 AM [facility] Platelet Count 261 163 - 337 10*3 08/01/2018 10:33 AM [facility] RDW CV 12.5 11.6 - 14.4 % 08/01/2018 10:33 AM [facility] MPV 8.8 6.7 - 12.0 fL 08/01/2018 10:33 AM [facility] Neutrophils 68.20(H) 34.00 - 67.90 % 08/01/2018 10:33 AM [facility] Lymphocytes 18.40(L) 21.80 - 53.10 % 08/01/2018 10:33 AM [facility] Monocytes 10.10 5.30 - 12.20 % 08/01/2018 10:33 AM [facility] Eosinophils 2.80 0.80 - 7.00 % 08/01/2018 10:33 AM [facility] Basophils 0.50 0.20 - 1.20 % 08/01/2018 10:33 AM [facility] Absolute Neutrophils 4.39 10*3 08/01/2018 10:33 AM [facility] Absolute Lymphocytes 1.18 10*3 08/01/2018 10:33 AM [facility] Absolute Monocytes 0.65 10*3 08/01/2018 10:33 AM [facility] Absolute Eosinophils 0.18 10*3 08/01/2018 10:33 AM [facility] Absolute Basophils 0.03 10*3 08/01/2018 10:33 AM [facility] Blood specimen (specimen) Venous blood / Unknown 08/01/2018 10:26 AM [facility] 08/01/2018 10:29 AM [facility] us Adam Walls DO LAB BLOOD ORDERABLES Final Res ult [facility] [address], [address] [place] [address], [place] [phone] documented in this encounter Visit Diagnoses Diagnosis Calculus of gallbladder with acute cholecystitis without obstruction- Primary documented in this encounter Additional Health Concerns Health Status Noted Date Alive and well 08/01/2018 documented as of this encounter Care Teams Pan Washer Hand Relationship Specialty Start Date End Date Ismael Powell MD PCP - General Internal Medicine 11/09/16 documented as of this encounter
--- OUTSIDE RECORDS SUMMARY | 2025-02-25 10:56 | XMS_ITS | Encounter Summary ---
Author Organization [facility] Address [address] [place] [address] Care Team Providers Care Director Of Quantitative Research Name Role Phone Ismael Powell MD Primary Care Provider Encounter Details Date Type Department Care Team (Late st Contact Info) Description 06/21/2018 Orders Only [facility] Radiology [address] [place] [address] System, Provider Not In, [address] [place] [address] Social History Tobacco Use Types Packs/Day Years [...] Priority Date/Time Associated Diagnosis Comments OUTSIDE IMAGES 06/21/2018 7:41 AM CDT documented in this encounter Results * Outside Images (06/21/2018 7:41 AM CDT) Anatomical Region Laterality Modality N/A Radiographic Lili ging 06/21/2018 7:41 AM CDT Narrative 06/21/2018 7:41 AM CDT Historic images from [facility] exist and can be viewed by using the hyperlink to access [employer] pacs: US ABDOMINAL COMPLETE Procedure Note System, Provider Not In, - 09/28/2020 Historic images from [facility] exist and can be viewed byusing the hyperlink to access [employer] pacs: US ABDOMINAL COMPLETE us Provider Not In System MD [facility] OR DERABLES Final Result documented in this encounter Visit Diagnoses Not on filedocumented in this encounter Care Teams Director Of Quantitative Research Relationship Specialty Start Date End Date Ismael Powell MD PCP - General Internal Medicine 11/09/16 documented as of this encounter
--- OUTSIDE RECORDS SUMMARY | 2025-02-25 10:56 | XMS_ITS | Encounter Summary ---
Author Organization [facility] Address [address] [place] [address] Care Team Providers Care Beater Engineer Name Role Phone Ismael Powell MD Primary Care Provider [phone] Encounter Details Date Type Department Care Team (Late st Contact Info) Description 08/16/2009 Orders Only [facility] Radiology [address] [place] [address] System, Provider Not In, [address] [place] [address] Social History Tobacco Use Types Packs/Day Years [...] Date/Time Associated Diagnosis Comments OUTSIDE IMAGES 08/16/2009 10:31 AM CLAIMS TECHNICIAN documented in this encounter Results * Outside Images (08/16/2009 10:31 AM CLAIMS TECHNICIAN) Anatomical Region Laterality Modality N/A Radiographic Lili ging 08/16/2009 10:3 1 AM CLAIMS TECHNICIAN Narrative 08/16/2009 10:31 AM CLAIMS TECHNICIAN Historic images from [facility] exist and can be viewed by using the hyperlink to access [employer] pacs: Complete Acute Abdomen Series Procedure Note System, Provider Not In - 08/17/2018 Historic images from [facility] exist and can be viewed by using thehyperlink to access [employer] pacs: Complete Acute Abdomen Series us Provider Not In System MD IMG GENERAL IMAGING OR DERABLES Final Result documented in this encounter Visit Diagnoses Not on filedocumented in this encounter Care Teams Beater Engineer Relationship Specialty Start Date End Date Ismael Powell MD PCP - General Internal Medicine 11/09/16 documented as of this encounter
--- OUTSIDE RECORDS SUMMARY | 2025-02-25 10:56 | XMS_ITS | Encounter Summary ---
Author Organization [facility] Address [address] [place] [address] Care Team Providers Care Dictating Machine Transcriber Name Role Phone Ismael Powell MD Primary Care Provider Encounter Details Date Type Department Care Team (Late st Contact Info) Description 03/24/2010 Orders Only [facility] Radiology [address] [place] [address] System, Provider Not In, [address] [place] [address] Social History Tobacco Use Types Packs/Day Years [...] Priority Date/Time Associated Diagnosis Comments OUTSIDE IMAGES 03/24/2010 6:52 AM CDT documented in this encounter Results * Outside Images (03/24/2010 6:52 AM CDT) Anatomical Region Laterality Modality N/A Radiographic Lili ging 03/24/2010 6:52 AM CDT Narrative 03/24/2010 6:52 AM CDT Historic images from [facility] exist and can be viewed by using the hyperlink to access [facility] pacs: US ABDOMEN Procedure Note System, Provider Not In - 09/21/2020 Historic images from [facility] exist and can be viewed byusing the hyperlink to access Carest[employer] pacs: US ABDOMEN us Provider Not In System MD IMG GENERAL IMAGING OR DERABLES Final Result documented in this encounter Visit Diagnoses Not on filedocumented in this encounter Care Teams Dictating Machine Transcriber Relationship Specialty Start Date End Date Ismael Powell MD PCP - General Internal Medicine 11/09/16 documented as of this encounter
--- OUTSIDE RECORDS SUMMARY | 2025-02-25 10:56 | XMS_ITS | Clinical Summary ---
Author Organization [facility] Address [address] [place] [address] Care Team Providers Care Mail Handler Assistant Name Role Phone Ismael Powell MD Primary Care Provider [phone] Allergies Active Allergy Reactions Criticality Noted Date Comments Naproxen Sodium Shortness Of Breath High 11/09/2016 Penicillins Rash Low 11/09/2016 Sulfa (Sulfonamide Antibiotics) Shortness Of Breath High 11/09/2016 Medications lansoprazole (PREVACID) 15 MG capsule Take 15 mg by mouth daily. Active loratadine (CLARITIN) 10 mg tablet Take 10 mg by mouth daily. Active amLODIPine (NORVASC) 10 MG tabletIndications :Essential hypertension Take 1 tablet (10 mg total) by mouth daily. 90 tablet 3 7 Active carBAMazepine (TEGRETOL) 200 mg tabletIndications :Groin pain, chronic, right Take 1 tablet (200 mg total) by mouth 3 (three) times a day. 1 po bid for chronic nerve pain 60 tablet 11 7 Active propylthiouracil (PTU) 50 mg tabletIndications :Hyperthyroidism Take 1 tablet (50 mg total) by mouth daily. 90 tablet 3 7 Active traMADol (ULTRAM) 50 mg tabletIndications :Groin pain, chronic, right Take 1 tablet (50 mg total) by mouth 2 (two) times a day. 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 Follow-up as needed. Slowly resume normal activities over the next week. Assessment & Plan (08/05/2018 2:43 PM ARBORICULTURE TEACHER): Will proceed with laparoscopic cholecystectomy. The indications, alternatives, risks and potential complications, including, but not limited to: bleeding, infection, damage to the surrounding organs, bile duct injury, bile leak, possible conversion to open, and post-op pneumonia, blood clots, prolonged diarrhea, or the non-relief of symptoms, and the risk of general anesthesia were discussed with the patient and they understand and wish to proceed. Hyperthyroidism 11/09/2016 Groin pain, chronic, right 11/09/2016 Social History Tobacco Use Types Packs/Day Years Used Date Smoking Tobacco: Never Smokeless Tobacco: Never Alcohol Use Standard Drinks/Week Comments No 0 (1 standard drink = 0.6 oz pur e alcohol) Sex and Gender Information Value Date Recorded Sex Assigned at Not on file Legal Sex Male 7:15 PM CDT Gender Identity Not on file Sexual Orientation Not on file Last Filed Vital Signs Vital Sign Reading Time Taken Comments Blood Pressure 124/66 08/15/2018 9:12 AM ARBORICULTURE TEACHER Pulse 80 08/01/2018 8:49 AM ARBORICULTURE TEACHER Temperature 36.2 C (97.1 F) 11/09/2016 12:29 PM CDT Respiratory Rate 16 08/01/2018 8:49 AM ARBORICULTURE TEACHER Oxygen Saturation 98% 08/01/2018 8:49 AM ARBORICULTURE TEACHER Inhaled Oxygen Concentration - - Weight 85.5 kg (188 lb 9.6 oz) 11/09/2016 12:29 PM CDT Height - - Body Mass Index - - Plan of Treatment Health Maintenance Due Date Last Done Comments Annual Wellness 1955 Td, Tdap Vaccines Adult 1974 Colonoscopy 2002 Pneumococcal Vaccine: 50+ Ye ars (1 of 1 - PCV) 2007 Shingrix (ZOSTER RECOMBINANT ) (1 of 2) 2007 Influenza Vaccination (#1) 2025 RSV 60+ (1 - 1-dose 75+ series) 2032 HIB Vaccines Aged Out No longer eligi ble based on patient's age to complete this topic HPV Vaccines Aged Out No longer eligi ble based on patient's age to complete this topic Hepatitis A Vaccines Aged Out No long er eligible based on patient's age to complete this topic Hepatitis B Vaccines Aged Out No long er eligible based on patient's age to complete this topic IPV Vaccines Aged Out No longer eligi ble based on patient's age to complete this topic Meningococcal Vaccines Aged Out No lo nger eligible based on patient's age to complete this topic RSV Mab Nirsevimab (Beyfortu s) <20 months Aged Out No longer eligible b ased on patient's age to complete this topic Rotavirus Vaccines Aged Out No longer eligible based on patient's age to complete this topic Insurance Care Teams Mail Handler Assistant Relationship Specialty Start Date End Date Ismael Powell MD PCP - General Internal Medicine 11/09/16
--- NOTE | 2025-02-25 11:01 | W.ED.CHESTPA ---
HPI - Chest Pain General: Chief Complaint: Chest Pain Stated Complaint: chest pain Time Seen by Provider: 02/25/25 10:55 History of Present Illness: 69-year-old man with history of prostate cancer, hypertension and GERD who presents to the emergency room with chest discomfort. He says feels like he pulled a muscle in his chest. Hurts with breathing. He had a stress test yesterday secondary to having a cardiac dysrhythmia. He is not on any blood thinners. He says he felt fine yesterday. Today the pain started. No cough. No fevers. No lower extremity swelling. No altered mental status. Related Data Home Medications ?Medication ?Instructions ?Recorded ?Confirmed tamsulosin 0.4 mg capsule 0.4 mg PO DAILY 07/10/24 02/25/25 loratadine 10 mg tablet (Allergy 10 mg PO DAILY 01/13/25 02/25/25 Relief (loratadine)) omeprazole 10 mg capsule,delayed 10 mg PO DAILY 01/13/25 02/25/25 release amlodipine 10 mg tablet 10 mg PO DAILY 02/25/25 02/25/25 metoprolol succinate 25 mg 25 mg PO QPM 02/25/25 02/25/25 tablet,extended release 24 hr Previous Rx's ?Medication ?Instructions ?Recorded propylthiouracil 50 mg tablet 50 mg PO BID 90 days #180 tabs 12/12/23 magnesium oxide 400 mg PO DAILY #90 tabs 01/13/25 Allergies Allergy/AdvReac Type Severity Reaction Status Date / Time naproxen (From Aleve) Allergy difficulty Verified 01/13/25 13:05 breathing Penicillins Allergy difficulty Verified 01/13/25 13:05 breathing Sulfa (Sulfonamide Allergy difficulty Verified 01/13/25 13:05 Antibiotics) breathing Review of Systems Narrative: Constitutional symptoms: Negative except as documented in HPI. Skin symptoms: Negative except as documented in HPI. Eye symptoms: Negative except as documented in HPI. ENMT symptoms: Negative except as documented in HPI. Respiratory symptoms: Negative except as documented in HPI. Cardiovascular symptoms: Negative except as documented in HPI. Gastrointestinal symptoms: Negative except as documented in HPI. Genitourinary symptoms: Negative except as documented in HPI. Musculoskeletal symptoms: Negative except as documented in HPI. Neurologic symptoms: Negative except as documented in HPI. Psychiatric symptoms: Negative except as documented in HPI. Endocrine symptoms: Negative except as documented in HPI. PFS ED PFSH: Medical History Arrhythmia Degenerative joint disease of cervical spine Dermatitis SCCA (squamous cell carcinoma) of skin Melanoma of skin Elevated PSA Tension headache Prostate cancer Dr. Christina Murray [facility] Encounter for screening for malignant neoplasm of prostate Insomnia Anxiety Medication management Encounter for screening for cardiovascular disorders Left hip pain BPH (benign prostatic hyperplasia) Routine lab draw Sciatica of left side Hypertension Hyperthyroidism Cholecystectomy planned Surgical History History of thyroidectomy H/O unilateral orchiectomy Left testicle removed - approx 1999 Social History (Updated 01/13/25 @ 13:10 by July Winston LPN) Smoking and tobacco/nicotine status: never used tobacco/nicotine Alcohol intake: former Substance/Drug Use: former Date of last use: 40 years ago Former substance use details: marijuana Physical Exam Narrative: EXAM NARRATIVE: General: Alert, no acute distress. Skin: Warm, dry. Head: Normocephalic, atraumatic. Neck: Supple, trachea midline. Eye: Extraocular movements are intact. Ears, nose, mouth and throat: mucosa moist. Cardiovascular: Regular, Normal peripheral perfusion. Respiratory: Lungs are clear to auscultation, respirations are non-labored, breath sounds are equal, Symmetrical chest wall expansion. Gastrointestinal: Soft, Nontender, Non distended Musculoskeletal: Normal ROM, no deformity. Neurological: Alert and oriented, No focal neurological deficit observed. Psychiatric: Cooperative, appropriate mood & affect. Course Vital Signs: Vital signs: Vital Signs Temperature 98.0 F 02/25/25 10:57 Pulse Rate 85 02/25/25 13:01 Respiratory Rate 18 02/25/25 10:57 Blood Pressure 175/71 02/25/25 11:52 Pulse Oximetry 95 02/25/25 13:01 Oxygen Delivery Me thod Room Air 02/25/25 13:01 MDM - Chest Pain Medical Decision Making Differential diagnosis for patient with chest pain includes but is not limited to and based on the above HPI, review of systems and physical exam: Pneumonia. unstable angina. angina. Acute coronary syndrome / MA. Pulmonary embolism. Costochondritis / musculoskeletal. Pleurisy. Pericarditis. Esophageal spasm. Pancreatis. Cholecystitis. Orders placed to evaluate differential diagnosis based on the above differential, HPI and physical exam EKG: Rate around 52. Read as 83. However patient is in bigeminy. Sinus bradycardia, No ST-T changes, bigeminy, normal SC & QRS intervals, This was reviewed and interpreted by myself the ER physician at 11:03 AM Chest x-ray: No acute process. No infiltrate. No pneumothorax. This was reviewed and interpreted by myself the emergency room physician. I also reviewed the radiology report. Lab Review: Laboratory results were reviewed and interpreted by myself the emergency room physician. No leukocytosis. No anemia. No renal failure. Initial troponin is negative. I reviewed the patient's medical record. Consultation: I spoke with Dr. Peterson who is the patient's house superintendent and who is on-call for cardiology today. He reviewed the stress test that was done yesterday and there was some abnormalities and he recommends admission to the hospitalist service and he will cath. Reexamination: Patient remained stable. No increased work of breathing. No altered mental status. No focal motor deficits. Consultation: I spoke with Dr. Johansen who is on-call for the hospital service who agrees to admission. Assessment and plan: Chest pain Frequent PVCs Abnormal stress test -I discussed the patient with the hospitalist on-call who is admitting the patient. - Discussed findings and plan with patient. Answered any questions. - All laboratory values were reviewed and interpreted personally by myself, the ER physician - All imaging was reviewed and interpreted personally by myself, the ER physician. - Evaluation and treatment of this problem were appropriate in the emergency setting Lab Data 02/25/25 11:05 02/25/25 11:05 Radiology Impressions Chest X-Ray 02/25/25 10:50 IMPRESSION: Stable chest with no acute abnormality. Laboratory Results WBC 7.51 10^3/uL (3.29-11.43) 02/25/25 11:05 RBC 4.68 10^6/uL (3.85-5.65) 02/25/25 11:05 Hgb 14.60 g/dL (11.27-16.99) 02/25/25 11:05 Hct 42.2 % (37-53) 02/25/25 11:05 MCV 90.2 fl (82-101) 02/25/25 11:05 MCH 31.2 pg (27-33) 02/25/25 11:05 MCHC 34.6 g/dL (30-55) 02/25/25 11:05 RDW 12.4 % (12.1-15.1) 02/25/25 11:05 Plt Count 286 10^3/cmm (157-399) 02/25/25 11:05 MPV 8.9 fL (7.4-10.4) 02/25/25 11:05 Neut % (Auto) 80.9 % 02/25/25 11:05 Lymph % (Auto) 12.6 % 02/25/25 11:05 [place] % (Auto) 5.2 % 02/25/25 11:05 Eos % (Auto) 0.4 % 02/25/25 11:05 Baso % (Auto) 0.5 % 02/25/25 11:05 Neut # (Auto) 6.07 10^3/uL (1.8-7.7) 02/25/25 11:05 Lymph # (Auto) 1.0 10^3/uL (0.8-4.8) 02/25/25 11:05 [place] # (Auto) 0.4 10^3/uL (0.2-0.9) 02/25/25 11:05 Eos # (Auto) 0.0 10^3/uL (0.0-0.8) 02/25/25 11:05 Baso # (Auto) 0.0 10^3/uL (0.0-0.1) 02/25/25 11:05 Nucleated RBC % (auto) 0 % 02/25/25 11:05 Nucleated RBCs # 0.0 /100WBC 02/25/25 11:05 PT 13.20 SECONDS (12.1-14.9) 02/25/25 11:05 INR 0.93 (0.8-1.2) 02/25/25 11:05 Sodium 143 mmol/L (136-145) 02/25/25 11:05 Potassium 4.4 mmol/L (3.5-5.1) 02/25/25 11:05 Chloride 102 mmol/L (98-107) 02/25/25 11:05 Carbon Dioxide 28 mmol/L (22-29) 02/25/25 11:05 Anion Gap 17.4 (5-19) 02/25/25 11:05 BUN 14 mg/dL (8-23) 02/25/25 11:05 Creatinine 1.0 mg/dL (0.7-1.2) 02/25/25 11:05 GFR Calculation 74.5 mL/min (90-130) L 02/25/25 11:05 Glucose 127 mg/dL (65-115) H 02/25/25 11:05 Calculated Osmolality 298 mOsm/kg (285-295) H 02/25/25 11:05 Calcium 9.8 mg/dL (8.5-10.5) 02/25/25 11:05 Total Bilirubin 0.5 mg/dL (0.15-1.2) 02/25/25 11:05 AST 23 U/L (0-40) 02/25/25 11:05 ALT 23 U/L (0-41) 02/25/25 11:05 Alkaline Phosphatase 166 U/L (40-130) H 02/25/25 11:05 Troponin T Baseline 9 ng/L (0-15) 02/25/25 11:05 Total Protein 7.4 g/dL (6.6-8.7) 02/25/25 11:05 Albumin 4.4 g/dL (3.5-5.2) 02/25/25 11:05 Globulin 3.0 g/dL (1.3-4.6) 02/25/25 11:05 Lipase 29 U/L (13-60) 02/25/25 11:05 All radiology interpretation(s) finalized by discharge Discharge Plan Discharge Patient Disposition: Admitted As Inpatient Clinical Impression: Chest pain, Frequent PVCs, Abnormal cardiovascular stress test Condition: Stable Coding Level of Care Code ED Medical Insurance Coding Specialist for Daniela Boland
[2025-02-25 11:11] LABS: Hematocrit 42.2 % (37-53); Hemoglobin 14.60 g/dL (11.27-16.99); Mean Corpuscular HGB Conc 34.6 g/dL (30-55); Mean Corpuscular Hemoglobin 31.2 pg (27-33); Mean Corpuscular Volume 90.2 fl (82-101); Nucleated Red Blood Cells % 0 %; Platelet Count 286 10^3/cmm (157-399); Red Blood Count 4.68 10^6/uL (3.85-5.65); White Blood Count 7.51 10^3/uL (3.29-11.43)
[2025-02-25 11:25] LABS: INR 0.93 (0.8-1.2); Prothrombin Time 13.20 SECONDS (12.1-14.9)
[2025-02-25 11:32] LABS: Troponin(5th) Baseline 9 ng/L (0-15)
[2025-02-25 11:39] LABS: Alanine Aminotransferase 23 U/L (0-41); Albumin Level 4.4 g/dL (3.5-5.2); Alkaline Phosphatase 166 U/L (40-130); Anion Gap 17.4 (5-19); Aspartate Amino Transferase 23 U/L (0-40); Blood Urea Nitrogen 14 mg/dL (8-23); Calcium 9.8 mg/dL (8.5-10.5); Carbon Dioxide 28 mmol/L (22-29); Chloride 102 mmol/L (98-107); Creatinine Clr Calc Pharmacy 83.0391; Globulin 3.0 g/dL (1.3-4.6); Glucose 127 mg/dL (65-115); Lipase 29 U/L (13-60); Osmolality Calculated 298 mOsm/kg (285-295); Potassium 4.4 mmol/L (3.5-5.1); Sodium 143 mmol/L (136-145); Total Protein 7.4 g/dL (6.6-8.7)
--- NOTE | 2025-02-25 13:00 | ECG_ITS ---
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 Measurements Intervals Arthur Rate: 94 P: 40 WI: 159 QRS: 10 QRSD: 86 T: 11 QT: 357 QTc: 448 Interpretive Statements SINUS RHYTHM WITH FREQUENT VENTRICULAR PREMATURE COMPLEXES IN A BIGEMINAL PATTERN MODERATE T-WAVE ABNORMALITY, CONSIDER ANTERIOR ISCHEMIA [-0.1+ mV T-WAVE IN V3/V4] Compared to ECG 02/25/2025 10:58:16 No significant changes Electronically Signed On 02-26-2025 09:30:46 CDT by Miguel Angel Villanueva M.D. [email or web address]
[2025-02-25 13:28] LABS: Troponin 5 2HR 7.88 ng/L (0-15)
[2025-02-25 13:29] LABS: Troponin 5 2HR Delta -1.12 ABS# (0-10)
--- NOTE | 2025-02-25 14:08 | P.HP_ITS ---
Providers/Chief Complaint 2 Admitting Physician: Hernandez Johansen MD Primary Care Provider: ENA Mon Chief Complaint: chest pain History of Present Illness Last Blackburn is a 69 year old male with a past medical history of prostate cancer, history of BPH, who presents [facility] for chest pain, patient underwent cardiac stress testing yesterday, he tells me that he got home he felt anterior chest discomfort, nonradiating, no shortness of breath, no abdominal pain, pain is not radiating into his shoulder, Review of Systems 2 Card: Reports: chest pain Medications/Allergies Home Medications ?Medication ?Instructions ?Recorded ?Confirmed ?Last Taken ?Type propylthiouracil 50 mg tablet 50 mg PO BID 90 days #18 0 tabs 12/12/23 02/25/25 02/25/25 Rx tamsulosin 0.4 mg capsule 0.4 mg PO DAILY 07/10/2410/2102/24/25 History loratadine 10 mg tablet (Allergy 10 mg PO DAILY 02/25/25 02/25/25 History Relief (loratadine)) magnesium oxide 400 mg PO DAILY #90 tabs 02/25/25 02/25/25 Rx omeprazole 10 mg capsule,delayed 10 mg PO DAILY 02/25/25 02/25/25 History release amlodipine 10 mg tablet 10 mg PO DAILY 02/25/25 07/0 10/2102/25/25 History metoprolol succinate 25 mg 25 mg PO QPM 02/25/2502/2502/24/25 History tablet,extended release 24 hr Allergies Allergy/AdvReac Type Severity Reaction Status Date / Time naproxen (From Aleve) Allergy difficulty Verified 01/13/25 13:05 breathing Penicillins Allergy difficulty Verified 01/13/25 13:05 breathing Sulfa (Sulfonamide Allergy difficulty Verified 01/13/25 13:05 Antibiotics) breathing PFSH Acute 2 PFSH: Medical History Arrhythmia Degenerative joint disease of cervical spine Dermatitis SCCA (squamous cell carcinoma) of skin Melanoma of skin Elevated PSA Tension headache Prostate cancer Dr. Christina [facility] Encounter for screening for malignant neoplasm of prostate Insomnia Anxiety Medication management Encounter for screening for cardiovascular disorders Left hip pain BPH (benign prostatic hyperplasia) Routine lab draw Sciatica of left side Hypertension Hyperthyroidism Cholecystectomy planned Surgical History History of thyroidectomy H/O unilateral orchiectomy Left testicle removed - approx 1999 Social History Smoking and tobacco/nicotine status: never used tobacco/nicotine Alcohol intake: former Substance/Drug Use: former Date of last use: 40 years ago Former substance use details: marijuana Vitals/I&O/Wt Last Vital Signs Temp 98.0 F 02/25/25 10:57 Pulse 90 02/25/25 14:01 Resp 15 02/25/25 13:31 BP 145/87 02/25/25 14:01 Pulse Ox 95 02/25/25 14:01 O2 Del Method Room Air 02/25/25 13:31 Weight last 48 hrs Weight 95.254 kg Physical Exam 2 Const: COMMON NORMALS: no acute distress and patient oriented x3 Eye: COMMON NORMALS: Equal, round and reactive pupils present Resp: COMMON NORMALS: normal respiratory effort, No retractions, No use of accessory muscles and clear to auscultation bilaterally AUSCULTATION: clear to auscultation bilaterally Cardio: COMMON NORMALS: no JVD, regular rate, regular rhythm, S1 normal heart sound present and S2 normal heart sound present RATE: regular rate RHYTHM: regular rhythm HEART SOUNDS: S1 normal heart sound present and S2 normal heart sound present GI: COMMON NORMALS: Normal to inspection, nondistended, normoactive bowel sounds present, Soft to palpation and non-tender Extremity: COMMON NORMALS: no calf tenderness and no pedal edema Neuro: COMMON NORMALS: patient oriented x3, CN's II-XII intact bilaterally and moves all extremities Psych: COMMON NORMALS: mental status grossly normal Data 02/25/25 11:05 02/25/25 11:05 A&P Assessment and plan (1) Chest pain: - Serial EKGs, serial troponins, telemetry monitoring - Will clarify with patient if he can take aspirin as he has an allergy to naproxen - Continue statin - Continue beta-slick - N.p.o. midnight for coronary angiogram tomorrow morning - Cardiology consulted - Cardiac echo PDMP PDMP Reviewed: Not Reviewed Attestations 2 Medical Necessity Statement*: Patient requires hospitalization for chest pain Diagnoses Chest pain R07.9
[2025-02-25 14:38] LABS: Estmated Average Glucose 117; Hemoglobin A1C 5.7 % (4.0-6.0)
[2025-02-25 14:45] LABS: Cholesterol 213 mg/dL (0-200); HDL Cholesterol 76 mg/dL (60-100); Thyroid Stimulating Hormone 2.09 uIU/mL (0.27-4.20); Triglycerides 68 mg/dL (0-150)
[2025-02-25] MEDS: pantoprazole 40 mg SDV IVP (15:12)
--- NOTE | 2025-02-25 16:09 | P.CONIM_ITS ---
<Statement entered by Priti Peterson MD - 02/25/25 19:21> Patient was evaluated and cared for in conjunction with an advanced practice practitioner. I personally examined the patient and reviewed the chart and all pertinent data including imaging, telemetry, and laboratory results. I discussed the patient in detail with the advanced practice practitioner. Please see their note for complete H&P testing result and agreed upon plan of care for the patient. 69-year-old male past medical history significant for strong family history of premature coronary artery disease arrhythmia, frequent PVCs, palpitation, chest pain presented with chest pressure shortness of breath to the ER. Patient defines chest pain as a central borders occasionally since yesterday and has been ongoing off and on basis feel like a pulled muscle, it is the reason patient came to the ER. Patient had a stress test performed as an outpatient couple of days ago. Stress test was read as negative however there appeared to be mild reversibility which could represent artifact in the absence of wall motion abnormality and in the absence of prone images. I have detailed discussion with the patient according to him his chest pain bothers him and it get exacerbated with movement. He is very anxious and think that he cannot go home just on the basis of the stress test at the same time he had bigeminal rhythm on the telemetry. GENERAL: Patient is alert, awake and oriented x3. HEART: Regular S1 and S2. No murmur, rub or gallop. LUNGS: Clear to auscultate bilaterally. CENTRAL NERVOUS SYSTEM: Grossly nonfocal. EXTREMITIES: Lower extremities with out edema bilaterally. Assessment and plan Arrhythmia Bigeminal PVCs Chest pain with both atypical and typical component Patient apparently had negative stress test however he has been having chest pain for the last 12 hours off and on basis. He is very nervous about it. He has history of premature coronary artery disease in his family according to him. He says that whenever he exerts it brings on the chest pain. He has frequent PVCs and now with bigeminal pattern. His PVC burden was more than 9%. Given the nature of chest pain his risk profile and PVCs along with palpitation I may will proceed with left heart cath and my reasoning behind that is if I have to even send him for PVC ablation EP would like to make sure that he does not have obstructive coronary artery disease. Patient would not like to go home as well and would like to have left heart cath as he thinks that stress test may not be 100% accurate given his symptoms he continues to have chest pressure upon mild exertion. I have detailed discussion with the patient and given him 1 option of optimization of medicine sending him home but he is reluctant and adamant about it given my above defined reasoning I will proceed with left heart cath in the morning Providers/Reason For Consult 2 Consulting Physician/Specialty*: Dr. Peterson Reason for Consult*: Chest pain, abnormal stress test Requesting Physician: Dr. Macdonald Attending Physician: Hernandez Johansen MD Primary Care Provider: ENA Mon History of Present Illness History of Present Illness Last Blackburn is a 69 year old male previously seen in our office by Dr. Peterson for an arrhythmia and palpitations, history of prostate cancer, high blood pressure, hypercholesterolemia, came into the ER with a main complaint of chest pressure. He states that over the last month or so he has developed chest pressure. This morning and occurred and he states it felt like a muscle was pulled in his chest . Sometimes he states this is exacerbated by walking especially uphill or exerting himself relieved with rest. He states that this was mild in nature. He told his friend what was happening, who recommended he go to the ER. Currently he is not having any chest pressure. He denied any vomiting with this but did have some nausea. No radiating to the jaw back or neck or arm. This was centralized at the center of his chest. Troponin was 9?7.88 so far awaiting 6-hour troponin. Creatinine normal at 1. He states for the last few months he has had no energy. 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 EKG today showed sinus rhythm with bigeminal rhythm. Previous Holter monitor for 3 days showed frequent ventricular ectopy with a maximum heart rate of 200. 45 occurrences of SVT occurred. He was recently started on a beta- slick for this. Ventricular arrhythmia burden was 9%. No runs of V. tach were seen. Most of the ventricular complexes were isolated but some were couplets. Stress test is pending but viewed by Dr. Peterson and showed abnormality. Medications/Allergies Home Medications ?Medication ?Instructions ?Recorded ?Confirmed ?Last Taken ?Type propylthiouracil 50 mg tablet 50 mg PO BID 90 days #18 0 tabs 12/12/23 02/25/25 02/25/25 Rx tamsulosin 0.4 mg capsule 0.4 mg PO DAILY 07/10/2410/2102/24/25 History loratadine 10 mg tablet (Allergy 10 mg PO DAILY 02/25/25 02/25/25 History Relief (loratadine)) magnesium oxide 400 mg PO DAILY #90 tabs 02/25/25 02/25/25 Rx omeprazole 10 mg capsule,delayed 10 mg PO DAILY 02/25/25 02/25/25 History release amlodipine 10 mg tablet 10 mg PO DAILY 02/25/25 0710/2102/25/25 History metoprolol succinate 25 mg 25 mg PO QPM 02/25/2502/2502/24/25 History tablet,extended release 24 hr Allergies Allergy/AdvReac Type Severity Reaction Status Date / Time naproxen (From Aleve) Allergy difficulty Verified 01/13/25 13:05 breathing Penicillins Allergy difficulty Verified 01/13/25 13:05 breathing Sulfa (Sulfonamide Allergy difficulty Verified 01/13/25 13:05 Antibiotics) breathing Current Medications Generic Name Dose Route Start Last Admin Trade Name Freq PRN Reason Stop Dose Admin Aspirin 81 mg 02/25/25 14:15 02/25/25 15:14 Aspirin 81 Mg Ec Tablet PO 81 mg DAILY GILDARDO Administration Enoxaparin Sodium 40 mg 02/25/25 14:10 02/25/25 15:14 Enoxaparin 40 Mg/0.4 Ml Syringe SUBCUT 40 mg Q24H GILDARDO Administration Pantoprazole Sodium 40 mg 02/25/25 14:10 02/25/25 15:12 Pantoprazole 40 Mg Sdv IVP 40 mg Q24H GILDARDO Administration PFSH Acute 2 PFSH: Medical History Arrhythmia Degenerative joint disease of cervical spine Dermatitis SCCA (squamous cell carcinoma) of skin Melanoma of skin Elevated PSA Tension headache Prostate cancer Dr. Christina Murray [facility] Encounter for screening for malignant neoplasm of prostate Insomnia Anxiety Medication management Encounter for screening for cardiovascular disorders Left hip pain BPH (benign prostatic hyperplasia) Routine lab draw Sciatica of left side Hypertension Hyperthyroidism Cholecystectomy planned Surgical History History of thyroidectomy H/O unilateral orchiectomy Left testicle removed - approx 1999 Social History Smoking and tobacco/nicotine status: never used tobacco/nicotine Alcohol intake: former Substance/Drug Use: former Date of last use: 40 years ago Former substance use details: marijuana Vitals/I&O/Wt Last Vital Signs Temp 97.9 F 02/25/25 15:59 Pulse 113 H 02/25/25 15:59 Resp 22 H 02/25/25 15:59 BP 165/73 02/25/25 15:59 Pulse Ox 97 02/25/25 15:59 O2 Del Method Room Air 02/25/25 15:59 Weight last 48 hrs Weight 204 lb 2 oz Weight 210 lb Physical Exam 2 Narrative: General: No apparent distress, healthy appearing, well nourished HENMT: normoceophalic Neck: No carotid bruit bilaterally Muskuloskeletal: Full ROM Respiratory: Normal respiratory effort, clear to auscultation bilaterally throughout all lung st[place], no use of accessory muscles Cardio: No JVD, regular rate, regular rhythm, S1 S2 normal, no murmurs, peripheral pulses 2+ radial palpated bilaterally GI: Normal to inspection, nondistended Extremities: Full ROM, normal, normal capillary refill, no cyanosis or edema Neuro: Alert and oriented x4, no focal motor deficits Psych: Affect normal, denies suicidal ideation, mental status grossly normal Skin: No rashes or lesions noted, no wounds Data 02/25/25 11:05 02/25/25 11:05 A&P Assessment and plan (1) Chest pain: (2) Premature ventricular contraction: (3) Frequent PVCs: (4) Abnormal cardiovascular stress test: (5) Bigeminy: Plan Discussed case with Dr. Peterson. Patient has had mixed picture of typical and atypical chest pain with new onset rhythm change to bigeminy pvcs. Stress test pending but preliminary results reviewed by Dr. Peterson as abnormal. Chest pain, new onest rhythm change, abnormal stress test, as well as risk factors for CAD. Please see Dr. Peterson's note for further recommendations. Thank you, Dr. Macdonald, for allowing us to care for this very pleasant 69 year old gentleman. PDMP PDMP Reviewed: Not Reviewed Consult Attestations 2 Medical Necessity Statement: Deferred to primary. Coding Level of Care Code Acute Code for Chg Fwd Diagnoses Chest pain, unspecified type R07.9 Chest pain type: unspecified Premature ventricular contraction I49.3 Frequent PVCs I49.3 Abnormal cardiovascular stress test R94.39 Bigeminy I49.8
--- NOTE | 2025-02-25 16:50 | ECG_ITS ---
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 Measurements Intervals [place] Rate: 87 P: 42 DE: 158 QRS: 21 QRSD: 83 T: 51 QT: 412 QTc: 498 Interpretive Statements SINUS RHYTHM WITH FREQUENT VENTRICULAR PREMATURE COMPLEXES IN A BIGEMINAL PATTERN NONSPECIFIC T-WAVE ABNORMALITY Compared to ECG 02/25/2025 13:00:09 Possible ischemia no longer present T-wave abnormality still present Electronically Signed On 02-26-2025 09:30:19 CDT by Miguel Angel Villanueva M.D. [email or web address]
[2025-02-25 17:41] LABS: Troponin 5 6HR 10.33 ng/L (0-15); Troponin 5 6HR Delta 1.33 ng/L (0-12)
[2025-02-25] MEDS: metoprolol succinate ER (24 HR) 25 mg Tablet PO (18:22)
--- NOTE | 2025-02-25 18:23 | PC.NURSE ---
patient refused thyroid medication. He stated he only takes medication in the morning, once a day. His pcp gave him too much and slowed his thyroid down too much.
[2025-02-26] VITALS (7 sets, daily range): BP systolic 124–156; BP diastolic 72–98; PULSE 65–70; RESP 17–26; TEMP 36.5–36.9; O2SAT 93–98
[2025-02-26 03:13] LABS: Hematocrit 37.9 % (37-53); Hemoglobin 12.80 g/dL (11.27-16.99); Mean Corpuscular HGB Conc 33.8 g/dL (30-55); Mean Corpuscular Hemoglobin 30.5 pg (27-33); Mean Corpuscular Volume 90.5 fl (82-101); Nucleated Red Blood Cells % 0 %; Platelet Count 229 10^3/cmm (157-399); Red Blood Count 4.19 10^6/uL (3.85-5.65); White Blood Count 6.41 10^3/uL (3.29-11.43)
[2025-02-26 03:42] LABS: Alanine Aminotransferase 18 U/L (0-41); Albumin Level 3.7 g/dL (3.5-5.2); Alkaline Phosphatase 137 U/L (40-130); Anion Gap 16.1 (5-19); Aspartate Amino Transferase 17 U/L (0-40); Blood Urea Nitrogen 13 mg/dL (8-23); Calcium 9.0 mg/dL (8.5-10.5); Carbon Dioxide 25 mmol/L (22-29); Chloride 105 mmol/L (98-107); Creatinine Clr Calc Pharmacy 81.9587; Globulin 2.3 g/dL (1.3-4.6); Glucose 108 mg/dL (65-115); Osmolality Calculated 295 mOsm/kg (285-295); Potassium 4.1 mmol/L (3.5-5.1); Sodium 142 mmol/L (136-145); Total Protein 6.0 g/dL (6.6-8.7)
--- NOTE | 2025-02-26 07:19 | XACV_ITS ---
Exam Room: [facility] Ht: 178 cm Wt: 108 kg BSA: 2.35 m2 Gender: Male : 1955 Any Known Allergies: Sulfa Exam Priority: Routine Procedure(s): Procedure Description: Diagnostic procedure Procedure Description: Left Heart Catheterization Procedure Description: Left ventriculography Procedure Description: Coronary Angiography Kristen LEA; Diagnostic Cath Status: Urgent Diagnostic Findings * Left Main has no disease. * Circumflex has no disease. * Right Coronary Artery has no disease. * Proximal Left Anterior Descending: mild 40% stenosis, LUCIE: 3 flow. * 1st Diagonal: mild 40% stenosis, LUCIE: 3 flow. * Coronary angiography shows right dominance. Conclusions 1. There is mild coronary artery disease with one vessel disease. 2. All rose are normal. 3. Hyperdynamic left ventricular systolic function. Ejection fraction of 70%. Recommendations * Continue current medical management and risk factor modification. Diagnostic RX Recommendation: medical therapy and/or counseling Ventriculography Ejection Fraction: 70.0 % Pressures Phase:Rest AO : 115 / 86 ( 100 ) @ 10:21:00 AM 133 / 66 ( 92 ) @ 10:26:00 AM 137 / 70 ( 96 ) @ 10:26:00 AM LV : 135 / -10 / 11 @ 10:25:00 AM 146 / -11 / 10 @ 10:26:00 AM 135 / -11 / 10 @ 10:26:00 AM Valves Phase:DefaultPhase AV : 14.0 @ 9:31:35 AM AV Mean Gradient: 21.0 @ 9:31:35 AM Clinical Evaluation EBL: 5mL-10mL Procedural Details Procedure Consent Obtained. Pre-Procedure Time Out. Identified patient by full name and date of as verbalized by the patient/guarantor. Does the consent match the physician's order: Yes. Accurate & Complete Informed Consent: Yes. Inpatient/Outpatient History & Physical on Chart: Yes. If H&P is completed, is and addenduem needed: No. Visualize and Verify Site with Patient/Guarantor: N/A. Relevant Radiology Images available: Yes. The risks, benefits, and alternatives of sedation and/or procedure were discussed by physician. The patient agrees to continue. Procedure started. [facility] Clinical Fraility Score: 3: Managing Well. Acid Mixer Indications: Other/Chest pain/Negative stress test. Chest Pain Symptom Assessment: Atypical Angina. Cardiovascular Instability: No. Correct patient, site and procedure confirmed by cath team. PERRLA. Strong, equal hand automobile mechanic bilaterally. Lungs clear x 5 lobes. IV Site on Arrival: 20 gauge in the left anticubital. IV Fluids: 0.9% NaCl at KVO. 50 mL infused prior to culture media laboratory assistant. Pre Procedural Pulses: bilateral dorsalis pedis was 1+. Pre Procedural Pulses: bilateral posterior tibial was 2+. Pre Procedural Pulses: bilateral radial was 3+. Oxygen started at 2liters/min via nasal canula. right groin was prepped with chloroprep then draped in the usual sterile fashion. right radial was prepped with chloroprep then draped in the usual sterile fashion. Physician notified. Patient's family unavailable. The patient stated that he, himself would notify his family/friends after the procedure. Equipment: 6F - Radial. Cardiac Cath Pack. ACIST Manifold Kit Model BT 2000. Heparinized Saline (2 units/mL), 1000 mL bag. Baseline sample Acquired. HR: 75 BPM. Physician arrived. Physician scrubbed in. Immediate Pre-Procedure Time Out. Correct Patient: Yes; Correct Procedure: Yes; Correct Site: Yes; Correct Patient Position: Yes; Correct Supplies: Yes; Dried Flammable Prep: Yes; Blood Products Available: N/A;. Lidocaine 1% infiltrated to the right radial. Arterial access obtained. A 5 romanian TIG catheter in over the exchange J wire. Multiple views taken of left coronary artery. Catheter redirected to the RCA. Multiple views taken of right coronary artery. Catheter removed over the exchange J wire. A 5 romanian Angled Pig catheter in over the exchange J wire. EDP Sample taken: LV 135/-11,11; HR: 72 BPM; SpO2: 97%. LV gram performed in GUZMAN @ 10 mL/second for a total of 30 mL. EDP Sample taken: LV 146/-12,10; HR: 73 BPM; SpO2: 98%. Pullback taken: LV 135/-12,10; AO 133/66(92); Mean: 21mmHg, Peak to Peak: 14mmHg, SEP: 22sec/min; HR: 78 BPM; SpO2: 98%. Catheter removed over the exchange J wire. Physician scrubbed out. A TR Band was successful obtaining hemostatsis at the Right Radial artery insertion site. Post Procedure: Pulses reassessed and unchanged. PERRLA. Strong, equal hand automobile mechanic bilaterally. No VTE prophylaxis required. Medication's Wasted: Lidocaine 1% = 18 mL. Medication's Wasted: Nitro = 49.8 mg. Medication's Wasted: Heparin = 1000 units. Medication's Wasted: Other = Versed 1 mg. Total IV fluids: 50 mL. Post-op diagnosis: Non-obstructive CAD. Complications: none. Estimated blood loss: 5mL-10mL. Responsiveness - Normal response to verbal stimuli; alert and oriented, PERRLA. Airway - Unaffected, no intervention required; spontaneous ventilation. Circulation: W/N/L, pulses unchanged. Nausea/Vomiting: No. Procedure completed. Patient transferred by bed to 1st floor. Vital chart was stopped. Access Site Site: Right Radial artery Sheath Size: 6 Fr Hemostasis Method: TR Band Hemostasis Success: Successful Procedure Medications Start: 8:54 AM Stop: 8:54 AM Medication: Fentanyl Amount: 50 mcg Route: I.V. Start: 9:08 AM Stop: 9:08 AM Medication: Versed Amount: 1 mg Route: I.V. Start: 9:08 AM Stop: 9:08 AM Medication: Fentanyl Amount: 25 mcg Route: I.V. Start: 9:13 AM Stop: 9:13 AM Medication: Fentanyl Amount: 25 mcg Route: I.V. Start: 9:17 AM Stop: 9:17 AM Medication: Nitrogylcerin Amount: 200 mcg Route: I.A. Start: 9:17 AM Stop: 9:17 AM Medication: Versed Amount: 1 mg Route: I.V. Start: 9:18 AM Stop: 9:18 AM Medication: Heparin Amount: 5000 units Route: I.V. I, the attending physician, have reviewed and verified all procedure medications. Yes, all medications given per verbal order History/Risk Factors Hypertension: Yes Dyslipidemia: No Peripheral Arterial Disease (PAD): No Myocardial Infarction (GA): No Obesity: Yes Renal Disease: No Tobacco Use: Never Prior Interventions PCI: No CABG: No Valve Surgery: No Report Signatures Finalized by Priti Peterson MD on 02/26/2025 09:47 AM
--- OUTSIDE RECORDS SUMMARY | 2025-02-26 07:40 | XMS_ITS | Encounter Summary ---
Author Organization [facility] Address [address] [place] [address] Care Team Providers Care Ups Driver Name Role Phone Ismael Powell MD Primary Care Provider Encounter Details Date Type Department Care Team (Late st Contact Info) Description 03/24/2010 Orders Only [facility] Radiology [address] [place] [address] System, Provider Not In, [address] [place] [address] Social History Tobacco Use Types Packs/Day Years [...] 03/24/2010 6:52 AM CDT Historic images from [facility] exist and can be viewed by using the hyperlink to access CarePro V&V pacs: US ABDOMEN Procedure Note System, Provider Not In - 09/21/2020 Historic images from [facility] exist and can be viewed byusing the hyperlink to access Carestream pacs: US ABDOMEN us Provider Not In System MD IMG GENERAL IMAGING OR DERABLES Final Result documented in this encounter Visit Diagnoses Not on filedocumented in this encounter Care Teams Ups Driver Relationship Specialty Start Date End Date Ismael Powell MD PCP - General Internal Medicine 11/09/16 documented as of this encounter
--- OUTSIDE RECORDS SUMMARY | 2025-02-26 07:40 | XMS_ITS | Clinical Summary ---
Author Organization [facility] Address [address] [place] [address] Care Team Providers Care Jewelry Sales Name Role Phone Ismael Powell MD Primary Care Provider Allergies Active Allergy Reactions Criticality Noted Date [...] week. Assessment & Plan (08/05/2018 2:43 PM WORKSITE WELLNESS PRACTITIONER): Will proceed with laparoscopic cholecystectomy. The indications, [...] Comments Blood Pressure 124/66 08/15/2018 9:12 AM WORKSITE WELLNESS PRACTITIONER Pulse 80 08/01/2018 8:49 AM WORKSITE WELLNESS PRACTITIONER Temperature 36.2 C (97.1 F) 11/09/2016 12:29 PM CDT Respiratory Rate 16 08/01/2018 8:49 AM WORKSITE WELLNESS PRACTITIONER Oxygen Saturation 98% 08/01/2018 8:49 AM WORKSITE WELLNESS PRACTITIONER Inhaled Oxygen Concentration - - Weight 85.5 [...] to complete this topic Insurance Care Teams Jewelry Sales Relationship Specialty Start Date End Date Ismael Powell MD PCP - General Internal Medicine 11/09/16
--- OUTSIDE RECORDS SUMMARY | 2025-02-26 07:40 | XMS_ITS | Clinical Summary ---
Author Organization [facility] Address [address] [place] [address] Care Team Providers Care Scheduling Coordinator Name Role Phone Hernandez Johansen MD Primary Care Provi negrito Allergies Active Allergy Reactions Criticality Noted Date Comments Naproxen Sodium Unknown,Shortness of Breath/Wheezing High 11/09/2016 Penicillins Unknown,Rash Medium 11/09/2016 Sulfa (Sulfonamide Antibiotics) Unknown,Shortness of Breath/Wheezing High 11/09/2016 Difficulty breathing Medications amitriptyline 25 mg tablet Take 25 mg by mouth daily at bedtime. Active amLODIPine 5 mg tablet Take 10 mg by mouth daily. Active aspirin 81 mg tablet,delayed release Take 81 mg by mouth daily. Pt not taking Active hydrOXYzine HCL 25 mg tablet Take 25 mg by mouth 3 times daily as needed for Itching. Active loratadine 10 mg tablet Take 10 mg by mouth daily. Active omeprazole 20 mg capsule,delayed release Take 20 mg by mouth daily. Active propylthiouraci L 50 mg tablet Take 50 mg by mouth 3 times daily. Active ciprofloxacin HCl (CIPRO) 500 mg tablet Take 1 Tablet (500 mg) by mouth 2 times daily. 6 Tablet 4 Active levoFLOXacin (Levaquin) 500 mg tablet Take 1 Tablet (500 mg) by mouth one time for 1 dose. 2 Tablet 4 Active diazePAM (Valium) 10 mg tabletIndicatio ns:Malignant neoplasm of prostate (CMS/HCC) Take 1 Tablet (10 mg) by mouth one time for 1 dose. 2 Tablet 4 Active HYDROcodone-massimo taminophen (NORCO) 5-325 mg tabletIndicatio ns:Malignant neoplasm of prostate (CMS/HCC) Take 1 Tablet by mouth every 4 hours as needed for Pain, Moderate. One tab prior to procedure and every 4 hours post procedure as needed Max Daily Amount: 6 Tablets 5 Tablet 4 Active tamsulosin (Flomax) 0.4 mg capsuleIndicati ons:Urinary retention Take 1 Capsule (0.4 mg) by mouth daily. 90 Capsule 3 5 Active Hospital, Clinic, or Other Facility Administered Medication Ordered Dose Route Frequency Start Date End Date Status leuprolide acetate (ELIGARD) 6 month subcut syringe 45 mgIndications:Prostat e cancer (CMS/HCC) 45 mg subCUT EVERY TWENTY-SIX WEEKS 04/30/2024 Active leuprolide acetate (ELIGARD) 6 month subcut syringe 45 mgIndications:Prostat e cancer (CMS/HCC) 45 mg subCUT EVERY TWENTY-SIX WEEKS 10/27/2024 Active Active Problems No known active problems Encounters Date Type Department Care Team Description 01/12/2025 Orders Only [facility] [address] [address] yKree Muniz, [place] Prostate cancer (CMS/HCC) from Last 3 Months Social History Tobacco Use Types Packs/Day Years Used Date Smoking Tobacco: Never Tobacco Cessation:Counseling Given: No Alcohol Use Standard Drinks/Week Comments Yes 0 (1 standard drink = 0.6 oz pur e alcohol) 'infrequent' Feeling Safe Answer Date Recorded Are you in a relationship wi th someone who hurts you emotionally and/or physically? No 01/29/2024 Sex and Gender Information Value Date Recorded Sex Assigned at Not on file Legal Sex Male 2:19 PM CDT Gender Identity Not on file Sexual Orientation Not on file Last Filed Vital Signs Vital Sign Reading Time Taken Comments Blood Pressure 152/94 08/01/2024 2:28 PM NIBBLER OPERATOR Pulse 109 08/01/2024 2:28 PM NIBBLER OPERATOR Temperature 36.4 C (97.6 F) 08/01/2024 2:28 PM NIBBLER OPERATOR Respiratory Rate 18 08/01/2024 2:28 PM NIBBLER OPERATOR Oxygen Saturation 100% 08/01/2024 2:28 PM NIBBLER OPERATOR Inhaled Oxygen Concentration - - Weight 93 kg (205 lb) 08/01/2024 2:28 PM NIBBLER OPERATOR Height 177.8 cm (5' 10 ) 01/29/2024 12:57 PM CDT Body Mass Index 29.41 01/29/2024 12:57 PM CDT Plan of Treatment Health Maintenance Due Date Last Done Comments Pre-Diabetes and Diabetes Screening 1955 DTAP/TDAP/TD VACCINES (1 - Tdap) 1976 PNEUMOCOCCAL VACCINE 50+ YEA RS (1 of 2 - PCV) 1976 ZOSTER VACCINE (1 of 2) 1976 COLORECTAL SCREENING 2002 Colorectal Cancer Screening 2002 FIT-DNA Q 3 years 2002 FIT/FOBT Q 1 year 2002 Flex Sig/CT Colonography Q 5 years 2002 RSV VACCINE (60+ or ) (1 - Risk 60-74 years 1-dose series) 2017 COVID-19 Vaccine (2023-2 5 season) 2024 07/27/2022, 12/29/2021, 07/28/2021, Additional history exists INFLUENZA VACCINE (#1) 2025 Medical Devices Implanted Type [employer] Device Identifier Shelf Expiration Date Model / Serial / Lot Lens Io Tecnis 19.0 [id number] - [id number] Implanted:Qty: 1 on 11/08/2022 by Ranjan Nelson MD at [facility] Lens Right: Anterior Chamber [employer] 10/02/2025 [id number] / [id number] / Lens Iol Tecnis Eyhance 20.0 [id number] - [id number] Implanted:Qty: 1 on 02/14/2023 by Ranjan Nelson MD at [facility] Lens Left: Eye [employer] 06/16/2025 [id number] / [id number] / [place] [address] BCBS MEDICARE HMO RX [facility] Medicare Part D Care Teams Scheduling Coordinator Relationship Specialty Start Date End Date Hernandez Johansen MD [address] [place] [id number] PCP - General Family Practice 11/08/22
--- OUTSIDE RECORDS SUMMARY | 2025-02-26 07:40 | XMS_ITS | Encounter Summary ---
Author Organization [facility] Address [address] [place] [address] Care Team Providers Care Cash Posting Representative Name Role Phone Ismael Powell MD Primary Care Provider Encounter Details Date Type Department Care Team (Late st Contact Info) Description 07/08/2012 Orders Only [facility] Radiology [address] [place] [address] System, Provider Not In, [address] [place] [address] Social History Tobacco Use Types Packs/Day Years [...] Diagnosis Comments OUTSIDE IMAGES 07/08/2012 2:40 PM POOL TABLE OPERATOR documented in this encounter Results * Outside Images (07/08/2012 2:40 PM POOL TABLE OPERATOR) Anatomical Region Laterality Modality N/A Radiographic Lili ging 07/08/2012 2:40 PM POOL TABLE OPERATOR Narrative 07/08/2012 2:40 PM POOL TABLE OPERATOR Historic images from [facility] exist and can be viewed by using the hyperlink to access [employer] pacs: US TESTICLE Procedure Note System, Provider Not In - 09/18/2020 Historic images from [facility] exist and can be viewed byusing the hyperlink to access [employer] pacs: US TESTICLE us Provider Not In System MD BAPTISTE GENERAL IMAGING OR DERABLES Final Result documented in this encounter Visit Diagnoses Not on filedocumented in this encounter Care Teams Cash Posting Representative Relationship Specialty Start Date End Date Ismael Powell MD PCP - General Internal Medicine 11/09/16 documented as of this encounter
--- OUTSIDE RECORDS SUMMARY | 2025-02-26 07:40 | XMS_ITS | Encounter Summary ---
Author Organization [facility] Address [address] [place] [address] Care Team Providers Care Grounds Supervisor Name Role Phone Ismael Powell MD Primary Care Provider Encounter Details Date Type Department Care Team (Late st Contact Info) Description 04/15/2010 Orders Only [facility] Radiology [address] [place] [address] System, Provider Not In, [address] [place] [address] Social History Tobacco Use Types Packs/Day Years [...] 04/15/2010 8:22 AM CDT Historic images from [facility] exist and can be viewed by using the hyperlink to access [employer]Sens[employer] pacs: US ABDOMEN Procedure Note System, Provider Not In - 09/21/2020 Historic images from [facility] exist and can be viewed byusing the hyperlink to access [employer] pacs: US ABDOMEN us Provider Not In System MD IMG GENERAL IMAGING OR DERABLES Final Result documented in this encounter Visit Diagnoses Not on filedocumented in this encounter Care Teams Grounds Supervisor Relationship Specialty Start Date End Date Ismael Powell MD PCP - General Internal Medicine 11/09/16 documented as of this encounter
--- OUTSIDE RECORDS SUMMARY | 2025-02-26 07:40 | XMS_ITS | Encounter Summary ---
Author Organization [employer] Address [address] Wagner: Epic Prelude ADT [place] [address] Care Team Providers Care Supply Chain Systems Manager Name Role Phone Unavailable Primary Care Provider Unavailabl e Encounter Details Date Type Department Care Team (Late st Contact Info) Description 06/25/2000 Outpatient Historical Non-Staff, Physician NO ADDRESS ON FILE Social History Tobacco Use Types Packs/Day Years Used Date Smoking Tobacco: Never Assessed Sex and Gender Information Value Date Recorded Sex Assigned at Not on file Legal Sex Male 3:12 AM OCEANOGRAPHER ASSISTANT Gender Identity Not on file Sexual Orientation Not on file documented as of this encounter Plan of Treatment Not on file documented as of this encounter Visit Diagnoses Not on filedocumented in this encounter
--- OUTSIDE RECORDS SUMMARY | 2025-02-26 07:40 | XMS_ITS | Clinical Summary ---
Author Organization [facility] Address [address] [place] [address] Care Team Providers Care Finishing Range Feeder Name Role Phone Unavailable Primary Care Provider Unavailabl e Social History Tobacco Use Types Packs/Day Years Used Date Smoking Tobacco: Never Assessed Sex and Gender Information Value Date Recorded Sex Assigned at Not on file Legal Sex Male 3:12 AM DINING ROOM HOST Gender Identity Not on file Sexual Orientation [...]
--- OUTSIDE RECORDS SUMMARY | 2025-02-26 07:40 | XMS_ITS | Encounter Summary ---
Author Organization [facility] Address [address] [place] [address] Care Team Providers Care Sales Promotion Officer Name Role Phone Ismael Powell MD Primary Care Provider Encounter Details Date Type Department Care Team (Late st Contact Info) Description 08/16/[address] [facility] Radiology [address] [place] [address] System, Provider Not In, [address] [place] [address] Social History Tobacco Use Types Packs/Day Years [...] Diagnosis Comments OUTSIDE IMAGES 08/16/2009 10:31 AM BIOFUELS MANAGER documented in this encounter Results * Outside Images (08/16/2009 10:31 AM BIOFUELS MANAGER) Anatomical Region Laterality Modality N/A Radiographic Lili ging 08/16/2009 10:3 1 AM BIOFUELS MANAGER Narrative 08/16/2009 10:31 AM BIOFUELS MANAGER Historic images from [facility] exist and can be viewed by using the hyperlink to access [employer]StaffInsight pacs: Complete Acute Abdomen Series Procedure Note System, Provider Not In - 08/17/2018 Historic images from [facility] exist and can be viewed by using thehyperlink to access [employer] pacs: Complete Acute Abdomen Series us Provider Not In System MD IMG GENERAL IMAGING OR DERABLES Final Result documented in this encounter Visit Diagnoses Not on filedocumented in this encounter Care Teams Sales Promotion Officer Relationship Specialty Start Date End Date Ismael Powell MD PCP - General Internal Medicine 11/09/16 documented as of this encounter
--- OUTSIDE RECORDS SUMMARY | 2025-02-26 07:41 | XMS_ITS | Encounter Summary ---
Author Organization [facility] Address [address] [place] [address] Care Team Providers Care Supervisor Filter Assembly Name Role Phone Ismael Powell MD Primary Care Provider [phone] Encounter Details Date Type Department Care Team (Late st Contact Info) Description 08/01/2018 Orders Only [facility] [place] [address] [place] [address] Short, Edilia E, CREDIT PRODUCT ANALYST Calculus of gallbladder with acute cholecystitis without [...] Comprehensive metabolic panel Once (08/01/2018 10:26 AM CASING SPLITTER) Sodium 138 136 - 145 meq/L 08/01/2018 11:15 AM CASING SPLITTER [facility] Potassium 4.0 3.5 - 5.1 meq/L 08/01/2018 11:15 AM CASING SPLITTER [facility] Chloride 100 98 - 107 meq/L 08/01/2018 11:15 AM CASING SPLITTER [facility] CO2 30.8 21.0 - 32.0 meq/L 08/01/2018 11:15 AM CASING SPLITTER [facility] BUN 14.0 7.0 - 18.0 mg/dL 08/01/2018 11:15 AM CASING SPLITTER [facility] Creatinine 1.01 0.80 - 1.30 mg/dL 08/01/2018 11:15 AM CASING SPLITTER [facility] Glucose 106 74 - 106 mg/dL 08/01/2018 11:15 AM CASING SPLITTER [facility] Calcium 9.2 8.5 - 10.1 mg/dL 08/01/2018 11:15 AM CASING SPLITTER [facility] Bilirubin Total 0.6 0.2 - 1.0 mg/dL 08/01/2018 11:15 AM CASING SPLITTER [facility] Alkaline Phosphatase 97 46 - 116 U/L 08/01/2018 11:15 AM CASING SPLITTER [facility] ALT (SGPT) 36 12 - 78 U/L 08/01/2018 11:15 AM CASING SPLITTER [facility] AST (SGOT) 22 15 - 37 U/L 08/01/2018 11:15 AM CASING SPLITTER [facility] Total Protein 7.7 6.4 - 8.2 g/dL 08/01/2018 11:15 AM CASING SPLITTER [facility] Albumin 4.4 3.4 - 5.0 g/dL 08/01/2018 11:15 AM CASING SPLITTER [facility] Globulin Calc 3.3 1.5 - 3.8 g/dL 08/01/2018 11:15 AM CASING SPLITTER [facility] Alb/Glob Ratio Calc 1.3 1.1 - 2.2 g/dL 08/01/2018 11:15 AM CASING SPLITTER [facility] BUN/Creatinine Ratio 14 mg/dL 08/01/2018 11:15 AM CASING SPLITTER [facility] Glomerular filtration rate if Non- >60 mL/min/1.7 3m2 08/01/2018 11:15 AM CASING SPLITTER [facility] Glomerular filtration rate if >60 mL/min/1.7 3m2 08/01/2018 11:15 AM CASING SPLITTER [facility] Comment: Chronic Kidney Disease: Less than 60 ml/min/1.73 square meters(m2) End Stage Renal Disease: Less than 15 ml/min/1.73 square meters(m2) Blood specimen (specimen) Venous blood / Unknown 08/01/2018 10:26 AM CASING SPLITTER 08/01/2018 10:29 AM CASING SPLITTER us Adam Walls DO LAB BLOOD ORDERABLES Final Res ult [facility] [address], [address] [place] [address], [place] [phone] * (ABNORMAL) CBC with Differential Once (08/01/2018 10:26 AM [facility]) WBC 6.43 4.23 - 9.07 10*3/uL 08/01/2018 10:33 AM CASING SPLITTER [facility] RBC 4.85 4.63 - 6.08 10*6/uL 08/01/2018 10:33 AM CASING SPLITTER [facility] Hemoglobin 15.7 13.7 - 17.5 g/dL 08/01/2018 10:33 AM CASING SPLITTER [facility] Hematocrit 43.9 40.1 - 51.0 % 08/01/2018 10:33 AM CASING SPLITTER [facility] MCV 90.5 79.0 - 92.2 fL 08/01/2018 10:33 AM CASING SPLITTER [facility] MCH 32.4(H) 25.7 - 32.2 pg 08/01/2018 10:33 AM CASING SPLITTER [facility] MCHC 35.8 32.3 - 36.5 g/dL 08/01/2018 10:33 AM CASING SPLITTER [facility] Platelet Count 261 163 - 337 10*3 08/01/2018 10:33 AM CASING SPLITTER [facility] RDW CV 12.5 11.6 - 14.4 % 08/01/2018 10:33 AM CASING SPLITTER [facility] MPV 8.8 6.7 - 12.0 fL 08/01/2018 10:33 AM CASING SPLITTER [facility] Neutrophils 68.20(H) 34.00 - 67.90 % 08/01/2018 10:33 AM CASING SPLITTER [facility] Lymphocytes 18.40(L) 21.80 - 53.10 % 08/01/2018 10:33 AM CASING SPLITTER [facility] Monocytes 10.10 5.30 - 12.20 % 08/01/2018 10:33 AM CASING SPLITTER [facility] Eosinophils 2.80 0.80 - 7.00 % 08/01/2018 10:33 AM CASING SPLITTER [facility] Basophils 0.50 0.20 - 1.20 % 08/01/2018 10:33 AM CASING SPLITTER [facility] Absolute Neutrophils 4.39 10*3 08/01/2018 10:33 AM CASING SPLITTER [facility] Absolute Lymphocytes 1.18 10*3 08/01/2018 10:33 AM CASING SPLITTER [facility] Absolute Monocytes 0.65 10*3 08/01/2018 10:33 AM CASING SPLITTER [facility] Absolute Eosinophils 0.18 10*3 08/01/2018 10:33 AM CASING SPLITTER [facility] Absolute Basophils 0.03 10*3 08/01/2018 10:33 AM CASING SPLITTER [facility] Blood specimen (specimen) Venous blood / Unknown 08/01/2018 10:26 AM CASING SPLITTER 08/01/2018 10:29 AM CASING SPLITTER us Adam Walls DO LAB BLOOD ORDERABLES Final Res ult [facility] [address], [address] [place] [address], [place] [phone] documented in this encounter Visit Diagnoses Diagnosis Calculus of gallbladder with acute cholecystitis without obstruction- Primary documented in this encounter Additional Health Concerns Health Status Noted Date Alive and well 08/01/2018 documented as of this encounter Care Teams Supervisor Filter Assembly Relationship Specialty Start Date End Date Ismael Powell MD PCP - General Internal Medicine 11/09/16 documented as of this encounter
--- OUTSIDE RECORDS SUMMARY | 2025-02-26 07:41 | XMS_ITS | Encounter Summary ---
Author Organization [facility] Address [address] [place] [address] Care Team Providers Care Dietetic Tech Name Role Phone Ismael Powell MD Primary Care Provider [phone] Encounter Details Date Type Department Care Team (Late st Contact Info) Description 03/31/2015 Orders Only [facility] Radiology [address] [place] [address] System, Provider Not In, [address] [place] [address] Social History Tobacco Use Types Packs/Day Years [...] 03/31/2015 12:51 PM CDT Historic images from [facility] exist and can be viewed by using the hyperlink to access [employer] pacs: US TESTICLE Procedure Note System, Provider Not In - 09/23/2020 Historic images from [facility] exist and can be viewed byusing the hyperlink to access Carestream pacs: US TESTICLE us Provider Not In System MD IMG GENERAL IMAGING OR DERABLES Final Result documented in this encounter Visit Diagnoses Not on filedocumented in this encounter Care Teams Dietetic Tech Relationship Specialty Start Date End Date Ismael Powell MD PCP - General Internal Medicine 11/09/16 documented as of this encounter
--- OUTSIDE RECORDS SUMMARY | 2025-02-26 07:41 | XMS_ITS | Encounter Summary ---
Author Organization [facility] Address [address] [place] [address] Care Team Providers Care Pr Internship Name Role Phone Ismael Powell MD Primary Care Provider Encounter Details Date Type Department Care Team (Late st Contact Info) Description 07/02/2018 Orders Only [facility] Radiology [address] [place] [address] System, Provider Not In, [address] [place] [address] Social History Tobacco Use Types Packs/Day Years [...] Diagnosis Comments OUTSIDE IMAGES 07/02/2018 11:58 AM UI SOFTWARE DEVELOPER documented in this encounter Results * Outside Images (07/02/2018 11:58 AM UI SOFTWARE DEVELOPER) Anatomical Region Laterality Modality N/A Radiographic Lili ging 07/02/2018 11:5 8 AM UI SOFTWARE DEVELOPER Narrative 07/02/2018 11:58 AM UI SOFTWARE DEVELOPER Historic images from [facility] exist and can be viewed by using the hyperlink to access [employer] pacs: Hepatobiliary Procedure Note System, Provider Not In, - 09/28/2020 Historic images from [facility] exist and can be viewed byusing the hyperlink to access Carestream pacs: Hepatobiliary Provider Not In System MD [facility] GENERAL IMAGING OR DERABLES Final Result documented in this encounter Visit Diagnoses Not on filedocumented in this encounter Care Teams Pr Internship Relationship Specialty Start Date End Date Ismael Powell MD PCP - General Internal Medicine 11/09/16 documented as of this encounter
--- OUTSIDE RECORDS SUMMARY | 2025-02-26 07:41 | XMS_ITS | Encounter Summary ---
Author Organization [facility] Address [address] [address] Care Team Providers Care Bowling Teacher Name Role Phone Ismael Powell MD Primary Care Provider Encounter Details Date Type Department Care Team (Late st Contact Info) Description 08/07/2012 Orders Only [facility] Radiology [address] [place] [address] System, Provider Not In, [address] [place] [address] Social History Tobacco Use Types Packs/Day Years [...] Diagnosis Comments OUTSIDE IMAGES 08/07/2012 10:37 AM BANDMILL OPERATOR documented in this encounter Results * Outside Images (08/07/2012 10:37 AM BANDMILL OPERATOR) Anatomical Region Laterality Modality N/A Radiographic Lili ging 08/07/2012 10:3 7 AM BANDMILL OPERATOR Narrative 08/07/2012 10:37 AM BANDMILL OPERATOR Historic images from [facility] exist and can be viewed by using the hyperlink to access [employer] pacs: CT AP WITH CONTRAST Procedure Note System, Provider Not In - 09/18/2020 Historic images from [facility] exist and can be viewed byusing the hyperlink to access Carestream pacs: CT AP WITH CONTRAST us Provider Not In System MD IMG GENERAL IMAGING OR DERABLES Final Result documented in this encounter Visit Diagnoses Not on filedocumented in this encounter Care Teams Bowling Teacher Relationship Specialty Start Date End Date Ismael Powell MD PCP - General Internal Medicine 11/09/16 documented as of this encounter
--- OUTSIDE RECORDS SUMMARY | 2025-02-26 07:41 | XMS_ITS | Encounter Summary ---
Author Organization [facility] Address [address] [place] [address] Care Team Providers Care Lumber Mover Name Role Phone Ismael Powell MD Primary Care Provider Encounter Details Date Type Department Care Team (Late st Contact Info) Description 06/21/2018 Orders Only [facility] Radiology [address] [place] [address] System, Provider Not In, [address] [place] [address] Social History Tobacco Use Types Packs/Day Years [...] CDT Historic images from [facility] exist and can be viewed by using the hyperlink to access [employer] pacs: US ABDOMINAL COMPLETE Procedure Note System, Provider Not In, - 09/28/2020 Historic images from [facility] exist and can be viewed byusing the hyperlink to access [employer] pacs: US ABDOMINAL COMPLETE us Provider Not In System MD [facility]IST[facility] GENERAL IMAGING OR DERABLES Final Result documented in this encounter Visit Diagnoses Not on filedocumented in this encounter Care Teams Lumber Mover Relationship Specialty Start Date End Date Ismael Powell MD PCP - General Internal Medicine 11/09/16 documented as of this encounter
--- OUTSIDE RECORDS SUMMARY | 2025-02-26 07:41 | XMS_ITS | Encounter Summary ---
Author Organization [facility] Address [address] [place] [address] Care Team Providers Care Forming Mill Operator Name Role Phone Ismael Powell MD Primary Care Provider Encounter Details Date Type Department Care Team (Late st Contact Info) Description 08/16/2009 Orders Only [facility] Radiology [address] [place] [address] System, Provider Not In, [address] [place] [address] Social History Tobacco Use Types Packs/Day Years [...] Diagnosis Comments OUTSIDE IMAGES 08/16/2009 10:28 AM IMMUNOLOGY TEACHER documented in this encounter Results * Outside Images (08/16/2009 10:28 AM IMMUNOLOGY TEACHER) Anatomical Region Laterality Modality N/A Radiographic Lili ging 08/16/2009 10:2 8 AM IMMUNOLOGY TEACHER Narrative 08/16/2009 10:28 AM IMMUNOLOGY TEACHER Historic images from [facility] exist and can be viewed by using the hyperlink to access [employer] pacs: Lumbosacral Spine; two or three views Procedure Note System, Provider Not In - 08/17/2018 Historic images from [facility] exist and can be viewed by using thehyperlink to access [employer] pacs: Lumbosacral Spine; two or threeviews us Provider Not In System MD BAPTISTE GENERAL IMAGING OR DERABLES Final Result documented in this encounter Visit Diagnoses Not on filedocumented in this encounter Care Teams Forming Mill Operator Relationship Specialty Start Date End Date Imsael Powell MD PCP - General Internal Medicine 11/09/16 documented as of this encounter
--- OUTSIDE RECORDS SUMMARY | 2025-02-26 07:41 | XMS_ITS | Encounter Summary ---
Author Organization [facility] Address [address] [place] [address] Care Team Providers Care Independent Marketing Consultant Name Role Phone Ismael Powell MD Primary Care Provider Encounter Details Date Type Department Care Team (Late st Contact Info) Description 03/16/2016 Orders Only [facility] Radiology [address] [place] [address] System, Provider Not In, [address] [place] [address] Social History Tobacco Use Types Packs/Day Years [...] 03/16/2016 10:07 AM CDT Historic images from [facility] exist and can be viewed by using the hyperlink to access [employer] pacs: Abd Series Flat & upright Procedure Note System, Provider Not In, - 09/11/2018 Historic images from [facility] exist and can be viewed by using thehyperlink to access [employer] pacs: Abd Series Flat & upright us Provider Not In System MD BAPTISTE GENERAL IMAGING OR DERABLES Final Result documented in this encounter Visit Diagnoses Not on filedocumented in this encounter Care Teams Independent Marketing Consultant Relationship Specialty Start Date End Date Ismael Powell MD PCP - General Internal Medicine 11/09/16 documented as of this encounter
--- NOTE | 2025-02-26 09:09 | P.HPUD_ITS ---
Surgery/Procedure H&P Update DATE OF PROCEDURE: February 26, 2025 DATE H&P PERFORMED: 02/26/25 H&P UPDATE INFORMATION: I have reviewed H&P completed within last 30 days, I have examined patient prior to procedure, No changes to prior documentation and Risks and benefits of the procedure reviewed PREOP DIAGNOSIS: Recurrent chest pains, arrhythmia/bigeminal PVCs PATIENT REASSESSED PRIOR TO SEDATION, WITH NO CHANGE NOTED: Yes PHYSICAL EXAM: alert, oriented x 3, clear to auscultation bilaterally, regular rate & rhythm and operative site marked AIRWAY EVAL/ANESTHESIA PLAN: ASA II, Risks, benefits & alternatives of sedation and/or procedure discussed and Patient agrees to continue as planned ADDITIONAL INFORMATION: Patient has been explained all risk-benefit and alternative for the procedure. Patient understand 2% risk of stroke major bleed, patient understand 5 to 6% risk of minor bleeding bruising infection hematoma pseudoaneurysm urgent emergent vascular bypass surgery. Patient understands extra risk of contrast- induced nephropathy. Patient agrees to it and would like to proceed with it
--- NOTE | 2025-02-26 09:45 | P.PN_ITS ---
Subjective 2 Subjective: He is undergoing coronary angiogram this morning. Vitals/I&O/Wt Last Vital Signs Temp 97.8 F 02/26/25 07:21 Pulse 70 02/26/25 07:21 Resp 20 H 02/26/25 07:21 BP 156/98 02/26/25 07:21 Pulse Ox 98 02/26/25 07:21 O2 Del Method Room Air 02/26/25 07:21 02/25/25 02/26/25 02/26/25 22:59 06:59 14:59 Intake Total 1250 / 1275 5 Balance 1250 / 1275 1274 Weight last 48 hrs Weight 239 lb 9.6 oz Weight 204 lb 2 oz Weight 210 lb Physical Exam 2 Const: COMMON NORMALS: no acute distress and patient oriented x3 GENERAL APPEARANCE: cooperative and comfortable ORIENTATION/CONSCIOUSNESS: Yes awake, Yes oriented to person, Yes oriented to place and Yes oriented to time Chest: COMMONS NORMALS: normal inspection of the chest and normal palpation of entire chest wall CHEST: Yes Symmetrical chest wall rise Resp: COMMON NORMALS: normal respiratory effort, No retractions, No use of accessory muscles and clear to auscultation bilaterally EFFORT & INSPECTION: Yes symmetric chest movement AUSCULTATION: clear to auscultation bilaterally Cardio: COMMON NORMALS: regular rate, regular rhythm, S1 normal heart sound present, S2 normal heart sound present, No gallops present (Cardio), No clicks present (Cardio), No murmurs present (Cardio) and No rub (Cardio) RATE: r egular rate RHYTHM: regular rhythm HEART SOUNDS: S1 normal heart sound present and S2 normal heart sound present PERIPHERAL PULSES: radial pulses present Extremity: COMMON NORMALS: no pedal edema Neuro: COMMON NORMALS: patient oriented x3 and moves all extremities S ENSORIUM/ORIENTATION: Yes oriented to person, Yes oriented to place and Yes oriented to time Data 02/26/25 02:54 02/26/25 02:54 A&P Assessment and plan (1) Bigeminy: (2) Frequent PVCs: (3) Chest pain: (4) Hypertension: PDMP PDMP Reviewed: Not Reviewed Coding Level of Care Code Acute Code for Chg Fwd Diagnoses Bigeminy I49.8 Frequent PVCs I49.3 Chest pain, unspecified type R07.9 Chest pain type: unspecified Primary hypertension I10 Hypertension type: primary hypertension
--- NOTE | 2025-02-26 09:55 | USCV_ITS ---
Last Blackburn Age: 69 Gender: M : 1955 Exam Date: 02/26/2025 11:18 Ordering Phys: Hernandez Johansen MD Technologist: Exam Location: [facility] Indication: assess for DVT HISTORY: assess for DVT PROCEDURES: Venous duplex imaging was performed in bilateral lower extremities. FINDINGS: No evidence of DVT seen in any vessel visualized at this time. CONCLUSIONS No evidence of right lower extremity DVT. No evidence of left lower extremity DVT. Alexander Mandel MD (Electronically Signed) Final Date: 26 February 2025 15:52 S
--- NOTE | 2025-02-26 11:30 | PM.DCS ---
Discharge Providers Date of Admission: 02/25/25 13:12 Date of Discharge: February 26, 2025 Attending Provider at Admission: Hernandez Johansen MD Attending Provider at Discharge: Hernandez Johansen MD Primary Care Provider: ENA Mon Diagnoses at Discharge Discharge Diagnosis (1) Bigeminy: Status: Acute (2) Frequent PVCs: Status: Acute (3) Chest pain: Status: Acute Qualifiers: Chest pain type: unspecified Qualified Code(s): R07.9 - Chest pain, unspecified (4) Hypertension: Status: Chronic Qualifiers: Hypertension type: primary hypertension Qualified Code(s): I10 - Essential (primary) hypertension Reason for Visit Reason for Visit: chest pain Hospital Course Hospital Course Last Blackburn is a 69 year old male with a past medical history of prostate cancer, history of BPH, who presents [facility] for chest pain, patient underwent cardiac stress testing yesterday, he tells me that he got home he felt anterior chest discomfort, nonradiating, no shortness of breath, no abdominal pain, pain is not radiating into his shoulder Patient was admitted to [facility] for chest pain, was monitored, no recurrent chest pain, underwent cardiac catheterization, no clinically significant obstructive CAD found, discharged with close outpatient follow-up with cardiology Patient reports shortness of breath with exertion, D-dimer within normal limits, no significant evidence of heart failure, no significant troponin, venous ultrasound - Patient does not want to stay as inpatient for CT angiogram of the chest to rule out pulm embolism, cannot do CT angiogram of the chest today as he has received contrast load with cardiac catheterization - Patient is adamant about going home, understands morbidity mortality associate with pulmonary embolism, he voices understanding, all questions answered - Will discharge him home with outpatient CT angiogram PE protocol ordered - Patient was advised if he has any shortness of breath or chest pain to go to the emergency room Physical Exam Const: COMMON NORMALS: no acute distress and patient oriented x3 Resp: COMMON NORMALS: normal respiratory effort, No retractions, No use of accessory muscles and clear to auscultation bilaterally AUSCULTATION: clear to auscultation bilaterally Cardio: COMMON NORMALS: regular rate, regular rhythm, S1 normal heart sound present and S2 normal heart sound present RATE: regular rate RHYTHM: regular rhythm HEART SOUNDS: S1 normal heart sound present and S2 normal heart sound present GI: COMMON NORMALS: Normal to inspection, nondistended, normoactive bowel sounds present and non-tender Extremity: COMMON NORMALS: no pedal edema Neuro: COMMON NORMALS: patient oriented x3 Psych: COMMON NORMALS: mental status grossly normal Skin: NARRATIVE SKIN EXAM: No calf pain, no calf tenderness, no swelling Discharge Data Studies Completed and Pending Completed Studies During Hospitalization Category Date Time Status [employer] request for service Routine Exams 02/26/25 07:19 Completed XR chest 1V portable [id number] Stat Exams 02/25/25 10:50 Completed Pending at discharge Category Date Time Status Complete Blood Count w/Auto AM LABS Lab 02/27/25 04:00 Ordered Complete Blood Count w/Auto AM LABS Lab 02/28/25 04:00 Ordered Comprehensive Metabolic Panel AM LABS Lab 02/27/25 04:00 Ordered Comprehensive Metabolic Panel AM LABS Lab 02/28/25 04:00 [place] [id number] Stat Ultrasound 02/26/25 09:55 Taken Radiology Impressions Chest X-Ray 02/25/25 10:50 IMPRESSION: Stable chest with no acute abnormality. Laboratory Results WBC 6.41 10^3/uL (3.29-11.43) 02/26/25 02:54 RBC 4.19 10^6/uL (3.85-5.65) 02/26/25 02:54 Hgb 12.80 g/dL (11.27-16.99) 02/26/25 02:54 Hct 37.9 % (37-53) 02/26/25 02:54 MCV 90.5 fl (82-101) 02/26/25 02:54 MCH 30.5 pg (27-33) 02/26/25 02:54 MCHC 33.8 g/dL (30-55) 02/26/25 02:54 RDW 12.3 % (12.1-15.1) 02/26/25 02:54 Plt Count 229 10^3/cmm (157-399) 02/26/25 02:54 MPV 9.1 fL (7.4-10.4) 02/26/25 02:54 Neut % (Auto) 67.9 % 02/26/25 02:54 Lymph % (Auto) 21.5 % 02/26/25 02:54 [place] % (Auto) 8.0 % 02/26/25 02:54 Eos % (Auto) 1.7 % 02/26/25 02:54 Baso % (Auto) 0.6 % 02/26/25 02:54 Neut # (Auto) 4.35 10^3/uL (1.8-7.7) 02/26/25 02:54 Lymph # (Auto) 1.4 10^3/uL (0.8-4.8) 02/26/25 02:54 [place] # (Auto) 0.5 10^3/uL (0.2-0.9) 02/26/25 02:54 Eos # (Auto) 0.1 10^3/uL (0.0-0.8) 02/26/25 02:54 Baso # (Auto) 0.0 10^3/uL (0.0-0.1) 02/26/25 02:54 Nucleated RBC % (auto) 0 % 02/26/25 02:54 Nucleated RBCs # 0.0 /100WBC 02/26/25 02:54 PT 13.20 SECONDS (12.1-14.9) 02/25/25 11:05 INR 0.93 (0.8-1.2) 02/25/25 11:05 D-Dimer 0.29 ug/mLFEU (0-0.59) 02/26/25 10:28 Sodium 142 mmol/L (136-145) 02/26/25 02:54 Potassium 4.1 mmol/L (3.5-5.1) 02/26/25 02:54 Chloride 105 mmol/L (98-107) 02/26/25 02:54 Carbon Dioxide 25 mmol/L (22-29) 02/26/25 02:54 Anion Gap 16.1 (5-19) 02/26/25 02:54 BUN 13 mg/dL (8-23) 02/26/25 02:54 Creatinine 1.0 mg/dL (0.7-1.2) 02/26/25 02:54 GFR Calculation 74.5 mL/min (90-130) L 02/26/25 02:54 Glucose 108 mg/dL (65-115) 02/26/25 02:54 Estimat Average Glucose 117 02/25/25 11:05 Hemoglobin A1c 5.7 % (4.0-6.0) 02/25/25 11:05 Calculated Osmolality 295 mOsm/kg (285-295) 02/26/25 02:54 Calcium 9.0 mg/dL (8.5-10.5) 02/26/25 02:54 Total Bilirubin 0.5 mg/dL (0.15-1.2) 02/26/25 02:54 AST 17 U/L (0-40) 02/26/25 02:54 ALT 18 U/L (0-41) 02/26/25 02:54 Alkaline Phosphatase 137 U/L (40-130) H 02/26/25 02:54 Troponin T Baseline 9 ng/L (0-15) 02/25/25 11:05 Troponin T 120 Minute 7.88 ng/L (0-15) 02/25/25 12:57 Delta Troponin T -1.12 ABS# (0-10) L 02/25/25 12:57 Troponin T Hi Sens 6Hr 10.33 ng/L (0-15) 02/25/25 17:12 Troponin T Hi Sens 6Hr Delta 1.33 ng/L (0-12) 02/25/25 17:12 Total Protein 6.0 g/dL (6.6-8.7) L 02/26/25 02:54 Albumin 3.7 g/dL (3.5-5.2) 02/26/25 02:54 Globulin 2.3 g/dL (1.3-4.6) 02/26/25 02:54 Triglycerides 68 mg/dL (0-150) 02/25/25 11:05 Cholesterol 213 mg/dL (0-200) H 02/25/25 11:05 LDL Cholesterol, Calc 123 mg/dL (50-129) 02/25/25 11:05 HDL Cholesterol 76 mg/dL (60-100) 02/25/25 11:05 LDL/HDL Ratio 1.62 RATIO (0.00-3.22) 02/25/25 11:05 Cholesterol/HDL Ratio 2.80 mg/dL (1.0-5.00) 02/25/25 11:05 Lipase 29 U/L (13-60) 02/25/25 11:05 TSH 2.09 uIU/mL (0.27-4.20) 02/25/25 11:05 Vitals Last Vital Signs Temp 97.8 F 02/26/25 07:21 Pulse 65 02/26/25 09:37 Resp 19 H 02/26/25 09:37 BP 136/87 02/26/25 09:37 Pulse Ox 96 02/26/25 09:37 O2 Del Method Room Air 02/26/25 07:21 Discharge Plan Discharge Patient Disposition: Home Condition: Stable Prescriptions: Continued tamsulosin 0.4 mg capsule 0.4 mg PO DAILY omeprazole 10 mg capsule,delayed release(DR/EC) 10 mg PO DAILY loratadine [Allergy Relief (loratadine)] 10 mg tablet 10 mg PO DAILY magnesium oxide 400 mg magnesium tablet 400 mg PO DAILY Qty: 90 3RF propylthiouracil 50 mg tablet 50 mg PO BID 90 Days Qty: 180 3RF amlodipine 10 mg tablet 10 mg PO DAILY metoprolol succinate 25 mg tablet extended release 24 hr 25 mg PO QPM Discharge Orders: Discharge Order (Routine); Ordered 02/26/25 Ordered By: Hernandez Johansen Other Ambulatory Orders: CT angio chest PE protcl [id number] (ONCE) Timeframe: [id number] Facility: [facility] - Location: Radiology [facility] Ordered By: Hernandez Johansen Referrals: Katlin Andres NP [Nurse Practitioner, Cardiology] - 03/05/25 3:30 pm GILDARDO Hilliard FNP [Primary Care Provider, Family Practice] - 03/03/25 2:30 am Referral Note: check-in @2:30 thank you! Discharge Diet: Cardiac Discharge Activity: Resume usual activity Patient Instructions: Chest Pain (DC), Heart Catheterization (DC), Opioid Safety, Post Angiogram Home Care Instructions, Patient Portal & [place] Instructions Activity Restrictions/Additional Instructions: - If any chest pain or shortness of breath please go to emergency room Discharge Attestations Time Spent in Discharge Care*: greater than 30 min Quality Metrics Clinical Quality Measures [ No reported AMI, CVA or VTE this stay] Coding Level of Care Code 61397 Diagnoses Bigeminy I49.8 Frequent PVCs I49.3 Chest pain, unspecified type R07.9 Chest pain type: unspecified Primary hypertension I10 Hypertension type: primary hypertension
== END 2025-02-26 14:00 | disposition home or self-care (01) ==
LOC: ER 13:09 → CSU 14:23
PROVIDERS: Emergency Medicine; Internal Medicine Cardiovascular Disease; Admitting Provider Family Medicine; Emergency Provider Emergency Medicine; PCP Nurse Practitioner Family; Visit Provider Family Medicine
DX: I25.10 Atherosclerotic heart disease of native coronary artery without angina pectoris (principal); I49.8 Other specified cardiac arrhythmias; I49.3 Ventricular premature depolarization; I10 Essential (primary) hypertension; K21.9 Gastro-esophageal reflux disease without esophagitis; Z85.46 Personal history of malignant neoplasm of prostate; E66.9 Obesity, unspecified; Z68.34 Body mass index [BMI] 34.0-34.9, adult; Z82.49 Family history of ischemic heart disease and other diseases of the circulatory system; F41.9 Anxiety disorder, unspecified; E89.0 Postprocedural hypothyroidism
CPT/HCPCS: 36415; 71045; 80053; 80061; 83036; 83690; 84443; 84484; 85025; 85378; 85610; 93005; 93458; 93970; 94664; 96372; 96374; 99152; 99285; C1769; C1887; C1894; G0378; J1644; J1650; J2250; J2470; J3010; J3490; J7030; J9999; Q0163; Q9967

== ENCOUNTER → 2025-04-21 10:01 | Outpatient (BNVA) | payer MEDICARE, SELFPAY | PROVIDERS: PCP Nurse Practitioner Family; Visit Provider Nurse Practitioner Family | DX: C61 Malignant neoplasm of prostate (principal) | CPT/HCPCS: 84153 ==

== ENCOUNTER → 2025-07-01 16:18 | Outpatient (BNVA) | payer MEDICARE, SELFPAY | PROVIDERS: PCP Nurse Practitioner Family; Visit Provider Internal Medicine Cardiovascular Disease | DX: I25.10 Atherosclerotic heart disease of native coronary artery without angina pectoris (principal); I34.0 Nonrheumatic mitral (valve) insufficiency; I49.3 Ventricular premature depolarization; I10 Essential (primary) hypertension | CPT/HCPCS: 99213 ==

== ENCOUNTER → 2025-07-16 09:30 | Outpatient (BNVA) | payer MEDICARE, SELFPAY | PROVIDERS: PCP Nurse Practitioner Family; Visit Provider Internal Medicine Cardiovascular Disease | DX: R53.83 Other fatigue (principal); M79.18 Myalgia, other site | CPT/HCPCS: 82252 ==